=== PATIENT | male | born 1950 | race Hispanic/Latino ===

== ENCOUNTER 2018-01-09 13:12 | Emergency (ER) | payer OTHER ==
[2018-01-09] MEDS ORDERED: TETANUS & DIPHTHERIA TOX,ADULT 0.5 ML VIAL ONE (16:24)
--- NOTE | 2018-01-09 17:03 | RAD REPORT ---
EXAM DESCRIPTION: RAD - Hand Right 3 View - 01/09/2018 4:52 pm CLINICAL HISTORY: First digit infection. COMPARISON: None. FINDINGS: Moderate soft tissue swelling is present involving the first digit. No fracture, dislocati on or evidence of subcutaneous air. Radiocarpal arthritic changes are present. Vascular calcification s are seen. IMPRESSION: Moderate soft tissue swelling of the first digit.
[2018-01-09] MEDS ORDERED: LIDOCAINE 1% 20 ML MDV ONE ×2 (17:29→17:30)
--- NOTE | 2018-01-09 18:28 | EDPHYS ---
Physician Documentation [facility] Name: Selena Melgar Age: 67 yrs Sex: Male : 1950 Arrival Date: 01/09/2018 Time: 13:14 Bed Treatment Private MD: Eze Lieberman E ED Physician Jean Hernadez HPI: 01/09 18:00 This 67 yrs old Male presents to ER via Ambulatory with complaints of Thumb pm1 Injury. 18:00 The patient or guardian reports pain, swelling. The complaints affect the right thumb. pm1 Context: The problem was sustained at home, resulted from puncture wound 2 days ago. Onset: The symptoms/episode began/occurred 2 day(s) ago. Modifying factors: The symptoms are alleviated by nothing, the symptoms are aggravated by nothing. Associated signs and symptoms: Pertinent negatives: numbness distally, tingling distally. Severity of symptoms: in the emergency department the symptoms are actually worse. The patient has not experienced similar symptoms in the past. The patient has not recently seen a physician. patient was changing a curtain kezia and got a splinter to his right thumb 2 days ago. Patient removed the splinter yesterday. patient without fever. Full range of motion present to thumb. Historical: - Allergies: 13:19 No Known Allergies; aj - Home Meds: 13:19 aspirin 81 mg Oral TbEC 1 tab once daily [Active]; atorvastatin 20 mg Oral tab 1 tab aj once daily [Active]; baclofen 10 mg Oral tab 1 tab 3 times per day [Active]; lisinopril 20 mg Oral tab 1 tab once daily [Active]; metformin 500 mg Oral tab 1 tab 2 times per day [Active]; - PMHx: 13:19 CVA; Diabetes - NIDDM; Hyperlipidemia; Hypertension; aj - PSHx: 13:19 Cholecystectomy; aj - Immunization history:: Last tetanus immunization: < 5 years ago. - Social history:: Smoking status: Patient/guardian denies using tobacco. - Ebola Screening: : No symptoms or risks identified at this time. ROS: 18:00 Constitutional: Negative for fever, chills, and weight loss, Eyes: Negative for injury, pm1 pain, redness, and discharge, ENT: Negative for injury, pain, and discharge, Neck: Negative for injury, pain, and swelling, Cardiovascular: Negative for chest pain, palpitations, and edema, Respiratory: Negative for shortness of breath, cough, wheezing, and pleuritic chest pain, Abdomen/GI: Negative for abdominal pain, nausea, vomiting, diarrhea, and constipation, Back: Negative for injury and pain. 18:00 Skin: Negative for injury, rash, and discoloration, Neuro: Negative for headache, weakness, numbness, tingling, and seizure. 18:00 MS/extremity: Positive for pain, swelling, of the right thumb, Negative for decreased range of motion, deformity. Exam: 18:00 Constitutional: This is a well developed, well nourished patient who is awake, alert, pm1 and in no acute distress. Head/Face: Normocephalic, atraumatic. Neck: Trachea midline, no thyromegaly or masses palpated, and no cervical lymphadenopathy. Supple, full range of motion without nuchal rigidity, or vertebral point tenderness. No Meningismus. Chest/axilla: Normal chest wall appearance and motion. Nontender with no deformity. No lesions are appreciated. Cardiovascular: Regular rate and rhythm with a normal S1 and S2. No gallops, murmurs, or rubs. Normal PMI, no JVD. No pulse deficits. Respiratory: Lungs have equal breath sounds bilaterally, clear to auscultation and percussion. No rales, rhonchi or wheezes noted. No increased work of breathing, no retractions or nasal flaring. Back: No spinal tenderness. No costovertebral tenderness. Full range of motion. 18:00 MS/ Extremity: Pulses equal, no cyanosis. Neurovascular intact. Full, normal range of motion. No fusiform swelling, tenderness over tendon sheath, flexed position of finger, or pain with passive flexion of right thumb. Negative kanavel's signs 18:00 Skin: cellulitis, that is minimal, on the dorsal aspect of distal phalanx of right thumb. Vital Signs: 13:19 BP 144 / 79; Pulse 68; Resp 19; Temp 97.6; Pulse Ox 100% on R/A; Weight 68.04 kg; aj Height 5 ft. 4 in. (162.56 cm); 16:44 BP 181 / 77; Pulse 57; Resp 18; Pulse Ox 100% ; sv 13:19 Body Mass Index 25.75 (68.04 kg, 162.56 cm) aj Procedures: 18:00 I \T\ D: Incision and drainage was performed for an abscess of the right Prepped with pm1 Betadine, Anesthetized with 2 ml's 1% Lidocaine. digital block to right thumb. Incised with Drained No purulence or drainage present with incision with scalpel #11 to main area of swelling, lateral aspect of right thumb nail, and lifting cuticle. No abscess present the patient tolerated the procedure well. MDM: 16:13 Patient medically screened. pm1 17:37 Data reviewed: vital signs. Data interpreted: Pulse oximetry: on room air is 100 %. pm1 Interpretation: normal. 18:25 Counseling: I had a detailed discussion with the patient and/or guardian regarding: the pm1 historical points, exam findings, and any diagnostic results supporting the discharge/admit diagnosis, radiology results, the need for outpatient follow up, a hand specialist, to return to the emergency department if symptoms worsen or persist or if there are any questions or concerns that arise at home. 01/09 16:16 Order name: Hand Right 3 View XRAY; Complete Time: 17:17 pm1 Administered Medications: 16:30 Drug: Tetanus-Diphtheria Toxoid Adult 0.5 ml {Blending Machine Operator: LIANAI. Exp: sv 03/20/2020. Lot #: [id number]. } Route: IM; Site: left deltoid; 17:35 Follow up: Response: No adverse reaction sv 17:35 Drug: Lidocaine (1 %) 5 ml {Note: given to Jeremie TROY for procedure.} Volume: 5 ml; sv Route: Infiltration; Disposition: 19:21 Co-signature as Attending Physician, Jean Hernadez MD I agree with the assessment and kdr plan of care. Disposition: 01/09/18 18:27 Discharged to Home. Impression: Puncture wound without foreign body of right hand - splinter to right hand rremoved, Cellulitis of right finger - thumb. - Condition is Stable. - Discharge Instructions: Puncture Wound. - Prescriptions for Bactrim DS 800- 160 mg Oral Tablet - take 1 tablet by ORAL route every 12 hours for 10 days; 20 tablet. Keflex 500 mg Oral Capsule - take 1 capsule by ORAL route every 12 hours for 10 days; 20 capsule. - Medication Reconciliation Form, Thank You Letter, Antibiotic Education form. - Follow up: Theron Seo MD; When: 2 - 3 days; Reason: Recheck today's complaints, Continuance of care, Re-evaluation by your physician. - Problem is new. - Symptoms have improved. Signatures: Dispatcher [employer] EDIsaura Alvarado RN RN sv Myers, Amanda, RN RN aj Rittger, Kevin, MD MD kdr Marinas, Patrick, REHAB SERVICES AIDE REHAB SERVICES AIDE pm1 Corrections: (The following items were deleted from the chart) 18:29 18:27 01/09/2018 18:27 Discharged to Home. Impression: Puncture wound without foreign pm1 body of right hand - splinter to right hand rremoved. Condition is Stable. Forms are Medication Reconciliation Form, Thank You Letter, Antibiotic Education, Prescription Opioid Use. Follow up: Theron Seo; When: 2 - 3 days; Reason: Recheck today's complaints, Continuance of care, Re-evaluation by your physician. Problem is new. Symptoms have improved. pm1 18:53 18:29 01/09/2018 18:27 Discharged to Home. Impression: Puncture wound without foreign sv body of right hand - splinter to right hand rremoved; Cellulitis of right finger - thumb. Condition is Stable. Discharge Instructions: Puncture Wound. Prescriptions for Bactrim DS 800-160 mg Oral Tablet - take 1 tablet by ORAL route every 12 hours for 10 days; 20 tablet, Keflex 500 mg Oral Capsule - take 1 capsule by ORAL route every 12 hours for 10 days; 20 capsule. and Forms are Medication Reconciliation Form, Thank You Letter, Antibiotic Education. Follow up: Theron Seo; When: 2 - 3 days; Reason: Recheck today's complaints, Continuance of care, Re-evaluation by your physician. Problem is new. Symptoms have improved. pm1
--- NOTE | 2018-01-09 18:28 | ER ---
Nurse's Notes [facility] Name: Selena Melgar Age: 67 yrs Sex: Male : 1950 Arrival Date: 01/09/2018 Time: 13:14 Bed Treatment Private MD: Eze Lieberman E Diagnosis: Puncture wound without foreign body of right hand-splinter to right hand rremoved;Cellulitis of right finger-thumb Presentation: 01/09 13:18 Presenting complaint: Patient states: Infection in right thumb for 2 days. Patient aj reports splinter removed yesterday, pain and swelling persists. Transition of care: patient was not received from another setting of care. Onset of symptoms was January 08, 2018. Care prior to arrival: None. 13:18 Method Of Arrival: Ambulatory aj 13:18 Acuity: BALA 4 aj 16:01 Risk Assessment: Do you want to hurt yourself or someone else? Patient reports no sv desire to harm self or others. Initial Sepsis Screen: Does the patient meet any 2 criteria? No. Patient's initial sepsis screen is negative. Does the patient have a suspected source of infection? Yes: Skin breakdown/wound. Triage Assessment: 13:19 General: Appears in no apparent distress. comfortable, Behavior is calm, cooperative, aj appropriate for age. Pain: Complains of pain in dorsal aspect of distal phalanx of right thumb and palmar aspect of distal phalanx of right thumb. Neuro: Level of Consciousness is awake, alert, obeys commands, Oriented to person, place, time, situation, Appropriate for age. Respiratory: Airway is patent Respiratory effort is even, unlabored, Respiratory pattern is regular, symmetrical. Derm: Skin is intact, is healthy with good turgor, Skin is pink, warm \T\ dry. normal. Musculoskeletal: Swelling present in dorsal aspect of distal phalanx of right thumb and palmar aspect of distal phalanx of right thumb. Historical: - Allergies: 13:19 No Known Allergies; aj - Home Meds: 13:19 aspirin 81 mg Oral TbEC 1 tab once daily [Active]; atorvastatin 20 mg Oral tab 1 tab aj once daily [Active]; baclofen 10 mg Oral tab 1 tab 3 times per day [Active]; lisinopril 20 mg Oral tab 1 tab once daily [Active]; metformin 500 mg Oral tab 1 tab 2 times per day [Active]; - PMHx: 13:19 CVA; Diabetes - NIDDM; Hyperlipidemia; Hypertension; aj - PSHx: 13:19 Cholecystectomy; aj - Immunization history:: Last tetanus immunization: < 5 years ago. - Social history:: Smoking status: Patient/guardian denies using tobacco. - Ebola Screening: : No symptoms or risks identified at this time. Screenin:00 Abuse screen: Denies threats or abuse. Denies injuries from another. Nutritional sv screening: No deficits noted. Tuberculosis screening: No symptoms or risk factors identified. Fall Risk None identified. Assessment: 15:56 General: Appears in no apparent distress. uncomfortable, slender, Behavior is calm, sv cooperative, appropriate for age. Pain: Complains of pain in right thumb Pain currently is 7 out of 10 on a pain scale. Quality of pain is described as tender, throbbing, Pain began 2-3 days ago. Is continuous. Neuro: Level of Consciousness is awake, alert, obeys commands, Oriented to person, place, time, situation, Moves all extremities. Full function Gait is steady. Cardiovascular: Patient's skin is warm and dry. Pulses are 3+ in right radial artery and left radial artery. Respiratory: Respiratory effort is even, unlabored, Respiratory pattern is regular, symmetrical. Derm: Skin is normal. Musculoskeletal: Range of motion: intact in all extremities, Swelling present in right thumb Pt reports that he had a splinter lodged in his skin and underneath the nail for about a day then took it out and the swelling started. Pt went to Dr Byrd's office but was then referred here for further evaluation. 16:44 Reassessment: Patient appears in no apparent distress at this time. No changes from sv previously documented assessment. Patient and/or family updated on plan of care and expected duration. Pain level reassessed. Patient is alert, oriented x 3, equal unlabored respirations, skin warm/dry/pink. 18:52 Reassessment: Patient appears in no apparent distress at this time. Patient and/or sv family updated on plan of care and expected duration. Pain level reassessed. Patient is alert, oriented x 3, equal unlabored respirations, skin warm/dry/pink. Patient denies pain at this time. Vital Signs: 13:19 BP 144 / 79; Pulse 68; Resp 19; Temp 97.6; Pulse Ox 100% on R/A; Weight 68.04 kg; aj Height 5 ft. 4 in. (162.56 cm); 16:44 BP 181 / 77; Pulse 57; Resp 18; Pulse Ox 100% ; sv 13:19 Body Mass Index 25.75 (68.04 kg, 162.56 cm) aj ED Course: 13:14 Patient arrived in ED. mr 13:15 Eze Lieberman MD is Private Physician. mr 13:19 Triage completed. aj 13:19 Arm band placed on left wrist. Patient placed in waiting room, Patient notified of wait aj time. 15:56 Isaura David, VINCENT is Primary Nurse. sv 16:00 Patient has correct armband on for positive identification. Adult w/ patient. Door sv closed. 16:12 Jeremie Coles NP is PHCP. pm1 16:13 Jean Hernadez MD is Attending Physician. pm1 16:32 X-ray(s) taken. sv 16:44 X-ray completed. Portable x-ray completed in exam room. Patient tolerated procedure bb2 well. 16:49 Hand Right 3 View XRAY In Process Unspecified. EDMS 18:26 Theron Seo MD is Referral Physician. pm1 18:30 Assist provider with I \T\ D: of an abscess on right thumb Set up I\T\D tray. Performed by berny Coles SEISMOGRAPH CHIEF Dressing with Neosporin and bandaid. 18:52 Patient did not have IV access during this emergency room visit. sv Administered Medications: 16:30 Drug: Tetanus-Diphtheria Toxoid Adult 0.5 ml {Gold Reclaimer: GoNabit. Exp: sv 03/20/2020. Lot #: [id number]. } Route: IM; Site: left deltoid; 17:35 Follow up: Response: No adverse reaction sv 17:35 Drug: Lidocaine (1 %) 5 ml {Note: given to Jeremie TROY for procedure.} Volume: 5 ml; sv Route: Infiltration; Outcome: 18:27 Discharge ordered by . pm1 18:52 Discharged to home ambulatory, with family. sv 18:52 Condition: stable 18:52 Discharge instructions given to patient, family, Instructed on discharge instructions, follow up and referral plans. medication usage, wound care, Demonstrated understanding of instructions, follow-up care, medications, wound care, Prescriptions given X 2. 18:53 Patient left the ED. sv Signatures: Dispatcher [employer] EDIsaura Alvarado RN RN sv Myers, Amanda, RN RN aj Rivera, Maria mr Marinas, Patrick, SEISMOGRAPH CHIEF SEISMOGRAPH CHIEF pm1 Tiera, Lexii bb2
[2018-01-09 19:10] VITALS: TEMP 97.6; O2SAT 100
[2018-01-09 19:11] VITALS: BP 181/77
== END 2018-01-09 18:53 | disposition home or self-care (01) ==
LOC: ER 13:12
PROC: 0HCFXZZ Extirpation of Matter from Right Hand Skin, External Approach (ICD-10-PCS; principal; 2018-01-09)
DX: S61.431A Puncture wound without foreign body of right hand, initial encounter (principal); L03.011 Cellulitis of right finger; W45.8XXA Other foreign body or object entering through skin, initial encounter; Y93.9 Activity, unspecified; Y92.9 Unspecified place or not applicable
CPT/HCPCS: 90714; 99284

== ENCOUNTER 2018-11-22 07:57 | Emergency (ER) | payer OTHER ==
--- OUTSIDE RECORDS SUMMARY | 2018-11-22 07:59 | XMS REPORT ---
:1950 [facility] Organization [facility] Address [address] [place] [address] [address] [place] [address] Care Team Providers Name Role Phone Unavailable Unavailable Unavailable Problems This patient has no known problems. Allergies, Adverse Reactions, Alerts This patient has no known allergies or adverse reactions. Medications This patient has no known medications.
[2018-11-22 08:47] LABS: Absolute Monocytes 1.1 K/uL (0.1-1.3); Absolute Neutrophil 13.6 K/uL (1.8-8.0); Basophils % 0.4 % (0-1.3); Eosinophils % 0.6 % (0-4.4); Hematocrit 37.7 % (39.6-49.0); Lymphocytes % 6.1 % (15.3-44.8); MPV 8.5 fL (7.6-11.3); Monocytes % 6.7 % (3.3-12.3)
[2018-11-22] MEDS ORDERED: IPRATROPIUM BROM 0.5MG/2.5ML ONE (08:54)
[2018-11-22] MEDS ORDERED: LEVALBUTEROL 1.25 MG/3 ML NEB ONE (08:54)
[2018-11-22] MEDS ORDERED: NA CHLORIDE 0.9% 1,000 ML ONE (08:55)
[2018-11-22] MEDS ORDERED: ACETAMINOPHEN 325 MG TABLET ONE (08:55)
[2018-11-22] MEDS ORDERED: CEFTRIAXONE/SWI 1gm 2 GM/20 ML SYR ONE (08:55)
[2018-11-22] MEDS ORDERED: AZITHROMYCIN IV 500 MG in NA CHLORIDE 0.9% 250 ML IVPB ONE (09:00)
[2018-11-22 09:06] LABS: ALT/SGPT 22 U/L (12-78); AST/SGOT 23 U/L (15-37); Albumin 4.2 g/dL (3.4-5.0); Alkaline Phosphatase 110 U/L (45-117); BUN Blood Urea Nitrogen 14 mg/dL (7-18); Bicarbonate 25 mmol/L (21-32); Bilirubin Direct 0.2 mg/dL (0-0.2); Bilirubin Total 0.6 mg/dL (0.2-1.0); CKMB Creatine Kinase MB 1.4 ng/mL (0.3-3.6); Creatine Phosphokinase 562 U/L (39-308); Glucose Level 182 mg/dL (74-106); Lipase 95 U/L (73-393); Protein, Total 8.1 g/dL (6.4-8.2); Sodium Level 139 mmol/L (136-145); Troponin (Emerg Dept Use Only) < 0.02 ng/mL (0.0-0.045)
[2018-11-22 09:19] LABS: Protime INR 1.08
[2018-11-22 09:46] LABS: Blood Morphology Comment NOTED (NOT SEEN); Burr Cells 1+; Platelet Estimate ADEQ
--- NOTE | 2018-11-22 09:46 | RAD REPORT ---
EXAM DESCRIPTION: RAD - Chest Single View - 11/22/2018 8:42 am CLINICAL HISTORY: Cough COMPARISON: February 2017 TECHNIQUE: AP portable chest image was obtained 0835 hour . FINDINGS: Lung volumes are low. No acute lung parenchymal process. Lung markings are similar to comp arison. Heart and vasculature are normal. No measurable pleural effusion and no pneumothorax. No acut e bony abnormality seen. No acute aortic findings suspected. IMPRESSION: No acute cardiopulmonary process. No suspicious interval change.
--- NOTE | 2018-11-22 10:13 | RAD REPORT ---
EXAM DESCRIPTION: CT - Chest For Pe Angio - 11/22/2018 10:05 am CLINICAL HISTORY: Cough, fever, dyspnea COMPARISON: Portable chest same day TECHNIQUE: Dynamically enhanced 3 mm thick images of the chest were obtained during administration o f approximately 150mL Isovue 370 IV contrast. Coronal and oblique MIP reconstruction images were gene rated and reviewed. Exam utilizes a protocol to evaluate the pulmonary arterial tree. All CT scans are performed using dose optimization technique as appropriate and may include automated exposure control or mA/KV adjustment according to patient size. FINDINGS: No pulmonary emboli are identified. The aorta as imaged shows no acute or suspicious finding. No pericardial thickening or effusion. Hear t size is upper normal. There is motion degradation present. Left ventricular wall thickness appears increased. Assessment is limited given the amount of motion. Minimal patchy alveolar opacities are present in the posterior gutter on the left. This would be obsc ured or occult on a portable chest film. No pleural effusion or pleural thickening. No mediastinal or hilar suspicious masses. No chest wall masses or abnormal axillary lymphadenopathy. IMPRESSION: No pulmonary emboli identified. Minimal patchy alveolar opacities in the posterior gutter on the left. Minimal left base pneumonia wo uld be suspected and can be correlated with clinical presentation. Motion degradation limits heart assessment. 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
[2018-11-22] MEDS ORDERED: HYDROCODONE/CHLORPHEN 5 ML/OSYR ONE (10:29)
--- NOTE | 2018-11-22 10:30 | EDPHYS ---
Physician Documentation [facility] Name: Selena Melgar Age: 68 yrs Sex: Male : 1950 Arrival Date: 11/22/2018 Time: 08:00 Bed 13 Private MD: ED Physician Jeb Kuhn HPI: 11/22 08:31 This 68 yrs old Male presents to ER via Ambulatory with complaints of Cough. brea 08:31 The patient or guardian reports airway noise, cough, difficulty breathing. Onset: The brea symptoms/episode began/occurred 3 day(s) ago. Severity of symptoms: At their worst the symptoms were mild, in the emergency department the symptoms are unchanged. Modifying factors: The symptoms are alleviated by nothing. Associated signs and symptoms: Pertinent positives: fever. The patient has experienced similar episodes in the past, a few times. Historical: - Allergies: 08:13 No Known Allergies; hb - Home Meds: 08:13 aspirin 81 mg Oral TbEC 1 tab once daily [Active]; atorvastatin 20 mg Oral tab 1 tab hb once daily [Active]; baclofen 10 mg Oral tab 1 tab 3 times per day [Active]; lisinopril 20 mg Oral tab 1 tab once daily [Active]; metformin 500 mg Oral tab 1 tab 2 times per day [Active]; - PMHx: 08:13 CVA; Diabetes - NIDDM; Hyperlipidemia; Hypertension; hb - PSHx: 08:13 Cholecystectomy; hb - Immunization history:: Adult Immunizations up to date. - Social history:: Smoking status: Patient/guardian denies using tobacco. - Ebola Screening: : No symptoms or risks identified at this time. ROS: 08:35 Constitutional: Negative for fever, chills, and weight loss, Eyes: Negative for injury, brea pain, redness, and discharge, Neck: Negative for injury, pain, and swelling, Cardiovascular: Negative for chest pain, palpitations, and edema, Abdomen/GI: Negative for abdominal pain, nausea, vomiting, diarrhea, and constipation, Back: Negative for injury and pain, : Negative for injury, bleeding, discharge, and swelling, MS/Extremity: Negative for injury and deformity, Skin: Negative for injury, rash, and discoloration, Neuro: Negative for headache, weakness, numbness, tingling, and seizure, Psych: Negative for depression, anxiety, suicide ideation, homicidal ideation, and hallucinations, Allergy/Immunology: Negative for hives, rash, and allergies, Endocrine: Negative for neck swelling, polydipsia, polyuria, polyphagia, and marked weight changes, Hematologic/Lymphatic: Negative for swollen nodes, abnormal bleeding, and unusual bruising. 08:35 ENT: Positive for hoarseness, rhinorrhea. 08:35 Respiratory: Positive for cough, shortness of breath, at rest. Exam: 08:35 Constitutional: This is a well developed, well nourished patient who is awake, alert, brea and in no acute distress. Head/Face: Normocephalic, atraumatic. Eyes: Pupils equal round and reactive to light, extra-ocular motions intact. Lids and lashes normal. Conjunctiva and sclera are non-icteric and not injected. Cornea within normal limits. Periorbital areas with no swelling, redness, or edema. ENT: Nares patent. No nasal discharge, no septal abnormalities noted. Tympanic membranes are normal and external auditory canals are clear. Oropharynx with no redness, swelling, or masses, exudates, or evidence of obstruction, uvula midline. Mucous membranes moist. Neck: Trachea midline, no thyromegaly or masses palpated, and no cervical lymphadenopathy. Supple, full range of motion without nuchal rigidity, or vertebral point tenderness. No Meningismus. Chest/axilla: Normal chest wall appearance and motion. Nontender with no deformity. No lesions are appreciated. Abdomen/GI: Soft, non-tender, with normal bowel sounds. No distension or tympany. No guarding or rebound. No evidence of tenderness throughout. Back: No spinal tenderness. No costovertebral tenderness. Full range of motion. Male : Normal genitalia with no discharge or lesions. Skin: Warm, dry with normal turgor. Normal color with no rashes, no lesions, and no evidence of cellulitis. MS/ Extremity: Pulses equal, no cyanosis. Neurovascular intact. Full, normal range of motion. Neuro: Awake and alert, GCS 15, oriented to person, place, time, and situation. Cranial nerves II-XII grossly intact. Motor strength 5/5 in all extremities. Sensory grossly intact. Cerebellar exam normal. Normal gait. Psych: Awake, alert, with orientation to person, place and time. Behavior, mood, and affect are within normal limits. 08:35 Cardiovascular: Rate: tachycardic, Rhythm: regular, Pulses: Pulses are 4+ in bilateral radial, brachial, femoral, popliteal, posterior tibial and and dorsalis pedis arteries.. Heart sounds: normal, Edema: is not appreciated, JVD: is not appreciated. Vital Signs: 08:11 BP 156 / 88; Pulse 118; Resp 20; Temp 100.3; Pulse Ox 90% on R/A; Pain 4/10; hb 08:27 Weight 68.04 kg (R); em 09:05 BP 150 / 83; Pulse 119; Resp 18; Pulse Ox 100% on Nebulizer Mask; em 10:20 BP 113 / 75; Pulse 102; Resp 16; Pulse Ox 96% on R/A; em 11:32 BP 143 / 82; Pulse 94; Resp 18; Pulse Ox 99% on R/A; em MDM: 08:10 Patient medically screened. [facility] [place] 08:41 Data reviewed: vital signs, nurses notes, lab test result(s), EKG, radiologic studies, brea plain films. 11/22 08:24 Order name: Basic Metabolic Panel; Complete Time: 09:23 em 11/22 08:24 Order name: Blood Culture Adult (2) em 11/22 08:24 Order name: CBC with Diff; Complete Time: 10:25 em 11/22 08:24 Order name: Ckmb; Complete Time: 09:23 em 11/22 08:24 Order name: CPK; Complete Time: 09:23 em 11/22 08:24 Order name: Lactate; Complete Time: 09:23 em 11/22 08:24 Order name: LFT's; Complete Time: 09:23 em 11/22 08:24 Order name: Lipase; Complete Time: 09:23 em 11/22 08:24 Order name: Procalcitonin; Complete Time: 10:25 em 11/22 08:24 Order name: Protime (+inr); Complete Time: 09:23 em 11/22 08:24 Order name: Ptt, Activated; Complete Time: 09:23 em 11/22 08:24 Order name: Troponin (emerg Dept Use Only); Complete Time: 09:23 em 11/22 08:27 Order name: Flu; Complete Time: 09:23 [facility] [place] 11/22 08:24 Order name: Chest Single View XRAY; Complete Time: 10:25 em 11/22 08:24 Order name: Accucheck; Complete Time: 08:39 em 11/22 08:24 Order name: Cardiac monitoring; Complete Time: 08:39 em 11/22 08:24 Order name: EKG - Nurse/Tech; Complete Time: 08:39 em 11/22 08:24 Order name: IV Saline Lock - Large Bore; Complete Time: 08:39 em 11/22 08:24 Order name: Labs collected and sent; Complete Time: 08:39 em 11/22 08:49 Order name: Manual Differential; Complete Time: 10:25 EDMS 11/22 09:25 Order name: CT Chest For PE Angio; Complete Time: 10:25 brea 11/22 10:30 Order name: INCENTIVE SPIROMETRY brea 11/22 08:24 Order name: O2 Per Protocol; Complete Time: 08:39 em 11/22 08:24 Order name: O2 Sat Monitoring; Complete Time: 08:39 em Administered Medications: 08:45 Drug: Tylenol 650 mg Route: PO; em 11:30 Follow up: Response: No adverse reaction em 08:50 Drug: Xopenex 2.5 mg Route: Inhalation; em 09:30 Follow up: Response: No adverse reaction; Marked relief of symptoms em 08:50 Drug: AtroVENT Aerosol 0.5 mg Route: Inhalation; em 09:30 Follow up: Response: No adverse reaction; Marked relief of symptoms em 08:55 Drug: NS 0.9% (30 ml/kg) 30 ml/kg Route: IV; Rate: bolus; Site: right forearm; em 08:56 Drug: Rocephin 2 grams Route: IV; Rate: per protocol; Site: right forearm; la1 09:30 Follow up: Response: No adverse reaction; IV Status: Completed infusion; IV Intake: 20mlem 09:22 Drug: Zithromax 500 mg Route: IVPB; Infused Over: 1 hrs; Site: right forearm; em 11:30 Follow up: Response: No adverse reaction; IV Status: Completed infusion; IV Intake: em 250ml Disposition: 11/22/18 10:29 Discharged to Home. Impression: Cough, Pneumonia due to other specified bacteria - left base , Type 2 diabetes mellitus, Fever, unspecified, Hypoxemia, Elevated white blood cell count. - Condition is Stable. - Discharge Instructions: Type 2 Diabetes Mellitus, Diagnosis, Adult, Community-Acquired Pneumonia, Adult, Community-Acquired Pneumonia, Adult, [id number], Hypoxemia, Cough, Adult, Type 2 Diabetes Mellitus, Diagnosis, Adult, [id number], Fever, Adult, [id number]. - Prescriptions for Albuterol Sulfate 90 mcg/actuation - inhale 1-2 puff by INHALATION route every 4-6 hours; 1 Inhaler. Zithromax 500 mg Oral Tablet - take 1 tablet by ORAL route once daily for 5 days; 5 tablet. Cheratussin AC 10- 100 mg/5 mL Oral liquid - take 10 milliliter by ORAL route every 4 hours; 150 milliliter. - Medication Reconciliation Form, Thank You Letter, Antibiotic Education, Prescription Opioid Use form. - Follow up: Private Physician; When: 2 - 3 days; Reason: Recheck today's complaints, Continuance of care, Re-evaluation by your physician. Follow up: Brian Bryan MD; When: 2 - 3 days; Reason: Recheck today's complaints, Continuance of care, Re-evaluation by your physician. - Problem is new. - Symptoms have improved. Signatures: Dispatcher [employer] [facility] Jeb Kuhn MD MD cha Munoz, Edgar, METAL MOCKUP MAKER METAL MOCKUP MAKER em Mehran Sidhu RN RN laRajani Bazan, RN RN Corrections: (The following items were deleted from the chart) 09:39 09:24 Thorax Wo Con+CT.RAD.BRZ ordered. [facility] 10:31 10:29 11/22/2018 10:29 Discharged to Home. Impression: Cough; Pneumonia due to other brea specified bacteria - left base . Condition is Stable. Forms are Medication Reconciliation Form, Thank You Letter, Antibiotic Education, Prescription Opioid Use. Follow up: Private Physician; When: 2 - 3 days; Reason: Recheck today's complaints, Continuance of care, Re-evaluation by your physician. Follow up: Brian Bryan; When: 2 - 3 days; Reason: Recheck today's complaints, Continuance of care, Re-evaluation by your physician. Problem is new. Symptoms have improved. brea 11:35 10:31 11/22/2018 10:29 Discharged to Home. Impression: Cough; Pneumonia due to other em specified bacteria - left base ; Type 2 diabetes mellitus; Fever, unspecified; Hypoxemia; Elevated white blood cell count. Condition is Stable. Discharge Instructions: Community-Acquired Pneumonia, Adult, Community-Acquired Pneumonia, Adult, [id number], Cough, Adult. Prescriptions for Albuterol Sulfate 90 mcg/actuation - inhale 1-2 puff by INHALATION route every 4-6 hours; 1 Inhaler, Zithromax 500 mg Oral Tablet - take 1 tablet by ORAL route once daily for 5 days; 5 tablet. and Forms are Medication Reconciliation Form, Thank You Letter, Antibiotic Education, Prescription Opioid Use. Follow up: Private Physician; When: 2 - 3 days; Reason: Recheck today's complaints, Continuance of care, Re-evaluation by your physician. Follow up: Brian Bryan; When: 2 - 3 days; Reason: Recheck today's complaints, Continuance of care, Re-evaluation by your physician. Problem is new. Symptoms have improved. brea
--- NOTE | 2018-11-22 10:30 | ER ---
Nurse's Notes [facility] Name: Selena Melgar Age: 68 yrs Sex: Male : 1950 Arrival Date: 11/22/2018 Time: 08:00 Bed 13 Private MD: Diagnosis: Cough;Pneumonia due to other specified bacteria-left base ;Type 2 diabetes mellitus;Fever, unspecified;Hypoxemia;Elevated white blood cell count Presentation: 11/22 08:11 Presenting complaint: Patient states: Nonproductive cough, pain with cough, headache, hb and sore throat x 3 days. Transition of care: patient was not received from another setting of care. Onset of symptoms was November 19, 2018. Risk Assessment: Do you want to hurt yourself or someone else? Patient reports no desire to harm self or others. Care prior to arrival: None. 08:11 Method Of Arrival: Ambulatory hb 08:11 Acuity: BALA 2 hb 08:20 Initial Sepsis Screen: Does the patient meet any 2 criteria? HR > 90 bpm. No. Patient's em initial sepsis screen is negative. Does the patient have a suspected source of infection? Yes: Productive cough/pneumonia. Historical: - Allergies: 08:13 No Known Allergies; hb - Home Meds: 08:13 aspirin 81 mg Oral TbEC 1 tab once daily [Active]; atorvastatin 20 mg Oral tab 1 tab hb once daily [Active]; baclofen 10 mg Oral tab 1 tab 3 times per day [Active]; lisinopril 20 mg Oral tab 1 tab once daily [Active]; metformin 500 mg Oral tab 1 tab 2 times per day [Active]; - PMHx: 08:13 CVA; Diabetes - NIDDM; Hyperlipidemia; Hypertension; hb - PSHx: 08:13 Cholecystectomy; hb - Immunization history:: Adult Immunizations up to date. - Social history:: Smoking status: Patient/guardian denies using tobacco. - Ebola Screening: : No symptoms or risks identified at this time. Screenin:13 Abuse screen: Denies threats or abuse. Denies injuries from another. Nutritional hb screening: No deficits noted. Tuberculosis screening: No symptoms or risk factors identified. Fall Risk None identified. Assessment: 08:35 General: Appears in no apparent distress. comfortable, Behavior is calm, cooperative, em Denies fever. Pain: Complains of pain in chest Pain currently is 4 out of 10 on a pain scale. Pain began 2-3 days ago. Neuro: Level of Consciousness is awake, alert, obeys commands, Oriented to person, place, time, situation. Cardiovascular: Capillary refill < 3 seconds Patient's skin is warm and dry. Respiratory: Reports cough that is productive, pain with cough since 3 days ago Airway is patent Respiratory effort is even, unlabored, Respiratory pattern is regular, symmetrical, Breath sounds are diminished bilaterally. GI: Abdomen is flat. : No signs and/or symptoms were reported regarding the genitourinary system. EENT: Denies nasal congestion, difficulty swallowing. Derm: Skin is intact, is healthy with good turgor, Skin is pink, warm \T\ dry. Musculoskeletal: Capillary refill < 3 seconds, Range of motion: intact in all extremities. 08:45 Reassessment: I agree with previous assessment. hb 09:10 Reassessment: Patient appears in no apparent distress at this time. Patient and/or em family updated on plan of care and expected duration. Pain level reassessed. Patient is alert, oriented x 3, equal unlabored respirations, skin warm/dry/pink. 10:30 Reassessment: Patient appears in no apparent distress at this time. Patient and/or em family updated on plan of care and expected duration. Pain level reassessed. Patient is alert, oriented x 3, equal unlabored respirations, skin warm/dry/pink. Patient states feeling better. Patient states symptoms have improved. 11:34 Reassessment: Patient appears in no apparent distress at this time. Patient and/or em family updated on plan of care and expected duration. Pain level reassessed. Patient is alert, oriented x 3, equal unlabored respirations, skin warm/dry/pink. Vital Signs: 08:11 BP 156 / 88; Pulse 118; Resp 20; Temp 100.3; Pulse Ox 90% on R/A; Pain 4/10; hb 08:27 Weight 68.04 kg (R); em 09:05 BP 150 / 83; Pulse 119; Resp 18; Pulse Ox 100% on Nebulizer Mask; em 10:20 BP 113 / 75; Pulse 102; Resp 16; Pulse Ox 96% on R/A; em 11:32 BP 143 / 82; Pulse 94; Resp 18; Pulse Ox 99% on R/A; em ED Course: 08:00 Patient arrived in ED. as 08:09 Jeb Kuhn MD is Attending Physician. brea 08:12 Triage completed. hb 08:12 Arm band placed on. hb 08:15 Keny Wilburn LVN is Primary Nurse. em 08:35 Patient has correct armband on for positive identification. Placed in gown. Bed in low em position. Call light in reach. Side rails up X2. Adult w/ patient. pvc monitor on. Pulse ox on. NIBP on. 08:35 Initial lab(s) drawn, by me, sent to lab. Flu and/or RSV swab sent to lab. Inserted em saline lock: 20 gauge in right forearm, using aseptic technique. Blood collected. 08:43 Chest Single View XRAY In Process Unspecified. EDMS 08:45 EKG done, by ED staff, reviewed by Jeb Kuhn MD. em1 08:50 Initial Neb Treatment Given as ordered. em 10:05 CT Chest For PE Angio In Process Unspecified. EDMS 10:05 CT completed. Patient tolerated procedure well. Patient moved back from CT. mw3 10:28 Brian Bryan MD is Referral Physician. brea 11:34 No provider procedures requiring assistance completed. IV discontinued, intact, em bleeding controlled, No redness/swelling at site. Pressure dressing applied. Administered Medications: 08:45 Drug: Tylenol 650 mg Route: PO; em 11:30 Follow up: Response: No adverse reaction em 08:50 Drug: Xopenex 2.5 mg Route: Inhalation; em 09:30 Follow up: Response: No adverse reaction; Marked relief of symptoms em 08:50 Drug: AtroVENT Aerosol 0.5 mg Route: Inhalation; em 09:30 Follow up: Response: No adverse reaction; Marked relief of symptoms em 08:55 Drug: NS 0.9% (30 ml/kg) 30 ml/kg Route: IV; Rate: bolus; Site: right forearm; em 08:56 Drug: Rocephin 2 grams Route: IV; Rate: per protocol; Site: right forearm; la1 09:30 Follow up: Response: No adverse reaction; IV Status: Completed infusion; IV Intake: 20mlem 09:22 Drug: Zithromax 500 mg Route: IVPB; Infused Over: 1 hrs; Site: right forearm; em 11:30 Follow up: Response: No adverse reaction; IV Status: Completed infusion; IV Intake: em 250ml Intake: 09:30 IV: 20ml; Total: 20ml. em 11:30 IV: 250ml; Total: 270ml. em Outcome: 10:29 Discharge ordered by . [facility] 11:34 Discharged to home via wheelchair, with family. em 11:34 Condition: good 11:34 Discharge instructions given to patient, family, Instructed on discharge instructions, follow up and referral plans. medication usage, Demonstrated understanding of instructions, follow-up care, medications, Prescriptions given X 3. 11:35 Patient left the ED. em Signatures: Dispatcher [employer] EDJbe Quarles MD MD cha Munoz, Edgar, ENGAGEMENT DIRECTOR ENGAGEMENT DIRECTOR Simona Kamara Eric em1 Mehran Sidhu RN RN la1 Rajani Gallardo RN RN Yolie Gardner 3
[2018-11-22 11:42] VITALS: TEMP 100.3
[2018-11-22 11:45] VITALS: BP 143/82; O2SAT 99
--- NOTE | 2018-11-25 11:33 | EKG ---
Test Date: 2018-11-22 Test Time: 08:41:05 Residential Aide: CITLALLI MEASUREMENT RESULTS: Intervals: Rate: 114 [place]: 200 QRSD: 76 QT: 312 QTc: 430 [place]: P: 64 [place]: 200 QRS: -41 T: 49 INTERPRETIVE STATEMENTS: Sinus tachycardia Left axis deviation Pulmonary disease pattern Abnormal ECG Compared to ECG 01/22/2009 14:16:10 Left-axis deviation now present Sinus rhythm no longer present Electronically Signed On 11-23-18 10:51:44 CDT by Robe Kaba
== END 2018-11-22 11:35 | disposition home or self-care (01) ==
LOC: ER 07:57
DX: J15.8 Pneumonia due to other specified bacteria (principal); R09.02 Hypoxemia; R50.9 Fever, unspecified; D72.829 Elevated white blood cell count, unspecified; E11.9 Type 2 diabetes mellitus without complications; I10 Essential (primary) hypertension; E78.5 Hyperlipidemia, unspecified; Z79.82 Long term (current) use of aspirin
CPT/HCPCS: 96365; 96368; 93005; 87040 ×2; 85025; 80048; 36415; 82550; 85610; 80076; 83605; 85730; 84484; 82553; 83690; 84145; 87804 ×2; 71275; 71045; 96375; 99285; 96366; Q9967; J0456; J0696; J7030

== ENCOUNTER 2024-12-22 13:35 | Emergency (ER) | payer OTHER ==
--- OUTSIDE RECORDS SUMMARY | 2024-12-22 13:43 | XMS REPORT | Continuity of Care Document ---
Author Name Unknown Address [address] [place] [address] [facility] Address [address] [place] [address] Care Team Providers Care Three Dimensional Map Modeler Name Role Phone JULISSA GILES Primary Care Physician Unavailab BRENDA Steen Attending Clinician Unavailable GINETTE ARREDONDO Attending Clinician UnavaJULISSA Mo Attending Clinician Unavailable JULISSA GILES Attending Clinician Unavailable Julissa Giles MD Attending Clinician [phone] Lab, Billy Frank Attending Clinician Unavailable Cbc, Medicare Wellness [facility] Attending Clinici an Unavailable Doctor Unassigned, Iyanbito Attending Clinician U Sheila Sauceda MD Attending Clinician [phone] Lab, Billy Frank Attending Clinician Unavailable Doctor Unassigned, Iyanbito Attending Clinician U Nadia Bartlett Attending Clinician [phone] NADIA SHAH Attending Clinician Unavailable Abby Fernandez MD Attending Clinician [phone] Lewis KAUR, Guadalupe Attending Clinician Unavailabl SHEILA Chacon Attending Clinician Unava orkrystal Nurse, [facility] Attending Clinician Unavailable MARIN JUNIOR Attending Clinician Unavailab MARIN Bentley Attending Clinician Unavailab le DIAZ, HENRI A Attending Clinician Unavailable 2, Ad[facility] Lab Attending Clinician Unavailable Porfirio Attending Clinician Unavailable Martha Goss Attending Clinician [phone] DASIA MCGHEE Attending Clinician UnavailMARTHA Martinez Attending Clinician UnavailCHIO Chang Attending Clinician Unavailable ABBY FERNANDEZ Attending Clinician Unavailable TANVIR CAMPBELL Attending Clinician UnavailAMENA Khan Attending Clinician Unavailkarely Millan MD, Chio Attending Clinician [phone] , [facility] Echo Room 1 - Attending Clinician Jermaine Simmons RN, Guadalupe Attending Clinician [phone] JORGE HEART Attending Clinician Unavailable Christiano Aguilar MD Attending Clinician [phone] Jorge Heart MD Attending Clinician [phone] Talya Stout DO Attending Clinician [phone] Yana Vázquez RN Attending Clinician UnavailCHRISTIANO Irwin Attending Clinician Unavailable Drea PEDRAZA, Ginny Tavarez Attending Clinician [phone] Elisa Vazquez LMSW Attending Clinician + [phone] BRENDA PIERSON Admitting Clinician Unavailable GINETTE ARREDONDO Admitting Clinician Jermaine Monroy Admitting Clinician Unavailable JORGE HEART Admitting Clinician Unavailable Jorge Heart MD Admitting Clinician [phone] CHRISTIANO AGUILAR Admitting Clinician Unavailable Payers Payer Name Policy Type Policy Number Effective Date Expirati on Date Source [place] [id number] 2018 00:00:00 [facility] DUAL COMP HMO D SNP [id number] 2020 00:00:00 [facility] SELECT OON [id number] 1 00:00:00 [facility] GE - HMO) [id number] 2020 00:00:00 [facility] - DUAL (MEDICARE REPLACEMENT HMO) [id number] [facility] - MEDICARE COMPLETE (MEDICARE REPLACEMENT HMO) [id number] Problems Condition Name Condition Details Condition Category Status Onset Date Resolution Date Last Treatment Date Treating Clinician Comments Source Upper respirator y tract infection, unspecifie d type Upper respirator y tract infection, unspecifie d type Disease Active 5-10 00:00: 00 [facility] Vision changes Vision changes Disease Active 12-31 00:00: 00 [facility] TERRA (obstructi ve sleep apnea) TERRA (obstructi ve sleep apnea) Disease Active 12-31 00:00: 00 [facility] Vitamin B12 deficiency Vitamin B12 deficiency Disease Active 12-31 00:00: 00 [facility] Benign prostatic hyperplasi a with incomplete bladder emptying Benign prostatic hyperplasi a with incomplete bladder emptying Disease Active 3- 00:00: 00 Overview: Formattin g of this note might be different from the original. 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 , unspecifie d hemiplegia type Disease Active 2019-08 00:00: 00 [facility] Spasticity as late effect of cerebrovas cular accident (CVA) Spasticity as late effect of cerebrovas cular accident (CVA) Disease Active 2019-08 00:00: 00 [facility] Neuropathy Neuropathy Disease Active 2019-08 00:00: 00 [facility] History of stroke History of stroke Disease Active 2019-08 00:00: 00 [facility] Balance problem Balance problem Disease Active 2019-08 00:00: 00 [facility] Weakness Weakness Disease Active 2019-08 00:00: 00 [facility] Diabetic polyneurop athy associated with type 2 diabetes mellitus Diabetic polyneurop athy associated with type 2 diabetes mellitus Disease Active 2019-08 00:00: 00 [facility] Essential hypertensi on Essential hypertensi on Disease Active 6-07 00:00: 00 [facility] Type 2 diabetes mellitus without complicati on, without long-term current use of insulin Type 2 diabetes mellitus without complicati on, without long-term current use of insulin Disease Active 2018- 4-16 00:00: 00 [facility] Uncontroll ed hypertensi on Uncontroll ed hypertensi on Disease Resolve d 6-17 00:00: 00 2021-02-25 00:00:00 2021-02-25 18:49:17 [facility] Hypertensi ve emergency Hypertensi ve emergency Disease Resolve d 6-16 00:00: 00 2021-02-25 00:00:00 2021-02-25 18:49:16 [facility] Atypical chest pain Atypical chest pain Disease Resolve d 6-06 00:00: 00 2021-02-25 00:00:00 2021-02-25 18:49:22 [facility] Cerebrovas cular accident (CVA), unspecifie d mechanism Cerebrovas cular accident (CVA), unspecifie d mechanism Disease Resolve d 4-16 00:00: 00 2020-07-03 00:00:00 2020-07-03 16:30:03 [facility] Need for speech therapy assessment Need for speech therapy assessment Disease Resolve d 9-05 00:00: 00 2019-10-01 00:00:00 2019-10-01 22:33:07 [facility] Need for pneumococc al vaccinatio n Need for pneumococc al vaccinatio n Disease Resolve d 9-05 00:00: 00 2019-10-01 00:00:00 2019-10-01 22:33:01 [facility] Allergies, Adverse Reactions, Alerts Allergy Name Allergy Type Status Severity Reaction(s) Onset Date Inactive Date Treating Clinician Comments Source Lisinopr il Propensi ty to adverse reaction s Active Cough 02-02 00:00: 00 [facility] LISINOPR IL DRUG INGREDI Active COUGH 02-02 00:00: 00 [facility] Social History Social Habit Start Date Stop Date Quantity Comments Source [facility] Tobacco use and exposure 2024-04-06 00:00:00 2024-04-06 00:00:00 Smokeless tobacco non-user [facility] History of Social function 2024-04-06 00:00:00 2024-04-06 00:00:00 [facility] Alcoholic beverage intake 2024-04-06 00:00:00 2024-04-06 00:00:00 Current non-drinker of alcohol (finding) [facility] Alcohol intake 2023-04-04 00:00:00 2023-04-04 00:00:00 Current non-drinker of alcohol (finding) [facility] Exposure to SARS-CoV-2 (event) 2022-12-16 00:00:00 2022-12-26 14:33:00 Not sure [facility] Tobacco Comment 2022-06-12 00:00:00 2022-06-12 00:00:00 occasionally, social smoker. [facility] Cigarette pack-years 2022-06-12 00:00:00 2022-06-12 00:00:00 [facility] History SDOH Financial 2020-01-23 00:00:00 2020-01-23 00:00:00 3 [facility] History SDOH Food Worry 2020-01-23 00:00:00 2020-01-23 00:00:00 1 [facility] History SDOH Food Scarcity 2020-01-23 00:00:00 2020-01-23 00:00:00 1 [facility] History SDOH Transport Med 2020-01-23 00:00:00 2020-01-23 00:00:00 2 [facility] History SDOH Transport Non-Med 2020-01-23 00:00:00 2020-01-23 00:00:00 2 [facility] Education 2020-01-23 00:00:00 2020-01-23 00:00:00 3 [facility] History of tobacco use 1969-02-16 00:00:00 Cigarette Smoker [facility] Sex assigned at 1950 00:00:00 1950 00:00:00 [facility] Smoking Status Start Date Stop Date Source Never Smoker [facility] Ex-smoker 2024-04-06 00:00:00 2024-04-06 00:00:00 [facility] Medications Ordered Medication Name Filled Medication Name Start Date Stop Date Current Medication? Ordering Clinician Indication Dosage Frequency Signature (SIG) Comments Components Source metFORMIN 500 mg tablet 2023-08 2 00:00: 00 Yes [id number] 500mg Take 1 tablet by mouth in the morning and 1 tablet in the evening. Take with meals. [facility] levETIRAcet am 500 mg tablet 04-06 09:36: 27 Yes 250mg Take 0.5 tablets by mouth in the morning and 0.5 tablets in the evening. [facility] amLODIPine 10 mg tablet 04-06 00:00: 00 Yes [id number] 10mg Take 1 tablet by mouth in the morning. [facility] lisinopriL 10 mg tablet 04-06 00:00: 00 Yes [id number] 10mg Take 1 tablet by mouth in the morning. [facility] ciclopirox 0.77 % cream 04-06 00:00: 00 Yes [id number] Apply to area(s) 2 (two) times daily. [facility] METFORMIN 500 mg tablet 2022-08 00:00: 00 07-21 00:00 :00 No [id number] TAKE ONE TABLET BY MOUTH TWICE A DAY WITH MEALS [facility] ondansetron 4 mg tablet 04-04 00:00: 00 Yes [id number] 4mg Take 1 tablet by mouth every 8 (eight) hours as needed for Nausea and Vomiting (N/V). [facility] benzonatate 100 mg capsule 04-04 00:00: 00 Yes [id number] TAKE ONE CAPSULE BY MOUTH THREE TIMES A DAY FOR COUGH [facility] lisinopriL 10 mg tablet 04-04 00:00: 00 04-06 00:00 :00 No [id number] 10mg Take 1 tablet by mouth in the morning. [facility] amLODIPine 10 mg tablet 04-04 00:00: 00 04-06 00:00 :00 No [id number] 10mg Take 1 tablet by mouth in the morning. [facility] Lancets [facility] 03-08 00:00: 00 Yes Use BID, DX E11.9 (Brand upon insurance approval) [facility] Blood-Gluco se Meter (ONETOUCH VERIO FLEX METER) [facility] 02-05 00:00: 00 Yes [id number] Use as directed, twice a day to monitor blood glucose for ICD code E11.9 [facility] Blood-Gluco se Meter (ONETOUCH VERIO FLEX METER) [facility] 02-05 00:00: 00 Yes [id number] Use as directed, twice a day to monitor blood glucose for ICD code E11.9 [facility] triamcinolo ne acetonide (KENALOG) injection 40 mg 12-26 21:00: 00 12-26 20:23 :00 No [id number] 40mg [facility] aspirin 81 mg chewable tablet 12-26 14:59: 02 12-26 00:00 :00 No 81mg Take 1 tablet by mouth in the morning. [facility] Multivitami ns with Fluoride (MULTI-CARLEEN MIN ORAL) 12-26 14:59: 02 12-26 00:00 :00 No Take by mouth daily. Super Beta Prostate [facility] cetirizine (ZYRTEC) 10 mg tablet 12-26 00:00: 00 Yes [id number] 10mg Take 1 tablet by mouth in the morning. [facility] ERGOCALCIFE ROL, VITAMIN D2, 1,250 mcg (50,000 unit) capsule 11-19 00:00: 00 Yes [id number] TAKE ONE CAPSULE BY MOUTH ONCE WEEKLY [facility] albuterol 90 mcg/actuati on inhaler 10-18 00:00: 00 Yes [id number] 2{puff} Inhale 2 Puffs every 6 (six) hours as needed for Wheezing or Shortness of Breath. [facility] LISINOPRIL 10 mg tablet 2021-08 00:00: 00 04-04 00:00 :00 No TAKE ONE TABLET BY MOUTH DAILY [facility] albuterol 90 mcg/actuati on inhaler 2021-08 00:00: 00 10-18 00:00 :00 No [id number] 2{puff} Inhale 2 Puffs every 6 (six) hours as needed for Wheezing or Shortness of Breath. [facility] ciclopirox 0.77 % cream 2021-08 00:00: 00 04-06 00:00 :00 No [id number] Apply to area(s) 2 (two) times daily. [facility] lisinopriL 10 mg tablet 2021-08 10:20: 04 05-21 00:00 :00 No lisinopril 10 mg tablet Take 1 tablet every day by oral route. [facility] METFORMIN 500 mg tablet 2021-08 00:00: 00 05-30 00:00 :00 No [id number] TAKE ONE TABLET BY MOUTH TWICE A DAY WITH MEALS [facility] LISINOPRIL 10 mg tablet 2021-08 00:00: 00 08-16 00:00 :00 No TAKE ONE TABLET BY MOUTH DAILY [facility] cyanocobala min (VITAMIN B12) injection 2,000 mcg 03-09 15:00: 00 06-01 13:58 :00 No [id number] 2000ug 2,000 mcg, Intramuscu lar, [id number], 6 doses, First dose on Sat03/09/22 at 1000, Last dose on Sat05/18/22 at 1000, Routine [facility] aspirin 81 mg chewable tablet 03-09 08:53: 36 Yes 81mg Take 81 mg by mouth daily. [facility] Multivitami ns with Fluoride (MULTI-CARLEEN MIN ORAL) 03-09 08:53: 36 Yes Take by mouth daily. Super Beta Prostate [facility] azelastine- fluticasone 137-50 mcg/spray nasal spray 03-09 08:53: 36 Yes azelastine -fluticaso ne 137 mcg-50 mcg/spray nasal spray [facility] levETIRAcet am 500 mg tablet 03-09 08:53: 36 Yes 250mg Take 250 mg by mouth 2 (two) times daily. [facility] lisinopriL 10 mg tablet 03-09 08:53: 36 Yes lisinopril 10 mg tablet Take 1 tablet every day by oral route. [facility] ergocalcife rol, vitamin d2, (VITAMIN D2) 1,250 mcg (50,000 unit) capsule 03-09 00:00: 00 11-19 00:00 :00 No [id number] 42183W Take 1 capsule by mouth weekly. [facility] ondansetron 4 mg tablet 425 00:00: 00 04-04 00:00 :00 No [id number] 4mg Take 1 tablet by mouth every 8 (eight) hours as needed for Nausea and Vomiting (N/V). [facility] ALBUTEROL 90 mcg/actuati on inhaler 2020-08 1-15 00:00: 00 08-06 00:00 :00 No [id number] INHALE TWO PUFFS BY MOUTH EVERY 6 HOURS NEEDED FOR WHEEZING OR FOR SHORTNESS OF BREATH [facility] METFORMIN 500 mg tablet -13 00:00: 00 05-21 00:00 :00 No [id number] TAKE ONE TABLET BY MOUTH TWICE A DAY WITH MEALS [facility] blood sugar diagnostic (ONETOUCH VERIO TEST STRIPS) strip 03-20 00:00: 00 Yes [id number] USE TWO TIMES A DAY [facility] amLODIPine 10 mg tablet 02-23 00:00: 00 04-04 00:00 :00 No [id number] 10mg Take 1 tablet by mouth daily. [facility] carvediloL 12.5 mg tablet 02-23 00:00: 00 12-26 00:00 :00 No [id number] 12.5mg Take 1 tablet by mouth 2 (two) times daily with meals. [facility] BENZONATATE 100 mg capsule 01-26 00:00: 00 04-04 00:00 :00 No [id number] TAKE ONE CAPSULE BY MOUTH THREE TIMES A DAY FOR COUGH [facility] INNOSPIRE ELEGANCE Yanet 2019-08 0-19 00:00: 00 12-26 00:00 :00 No USE INSTRUCTED - PER PACKAGE INSTRUCTIO NS [facility] ONETOUCH VERIO FLEX METER [facility] 8 00:00: 00 02-05 00:00 :00 No [id number] USE TWO TIMES A DAY [facility] ONETOUCH VERIO FLEX METER [facility] 04-18 00:00: 00 02-05 00:00 :00 No [id number] USE TWO TIMES A DAY [facility] Lancets [facility] 02-11 00:00: 00 Yes Use BID, DX E11.9 (Brand upon insurance approval) [facility] Lancets [facility] 02-11 00:00: 00 03-08 00:00 :00 No Use BID, DX E11.9 (Brand upon insurance approval) [facility] sulfamethox azole-trime thoprim (BACTRIM DS) 800-160 mg per tablet 09-28 00:00: 00 10-09 05:59 :00 No [id number] 1{tbl} Take 1 tablet by mouth 2 (two) times daily for 10 days. [facility] blood sugar diagnostic strip 04-21 00:00: 00 02-11 00:00 :00 No [id number] Check sugars BID times a day. Dx Code E11.9. Brand per insurance. [facility] lancets (BD ULTRA FINE LANCETS) 33 gauge [facility] 04-21 00:00: 00 02-11 00:00 :00 No [id number] Check sugars BID times a day. Dx Code E11.9. Brand per insurance. [facility] cloNIDine 0.2 mg tablet 01-09 00:00: 12-28 00:00 :00 No [id number] .2mg Take 1 tablet by mouth 2 (two) times daily. [facility] Diclofenac Sodium 1 % gel 01-08 00:00: 12-28 00:00 :00 No [id number] Take 2-4 grams three times a day as needed for pain [facility] baclofen 10 mg tablet 12-02 00:00: 12-30 00:00 :00 No 10mg Take 1 tablet by mouth 2 (two) times daily. [facility] metFORMIN 500 mg tablet 12-02 00:00: 11-04 00:00 :00 No [id number] 500mg Take 1 tablet by mouth 2 (two) times daily with meals. [facility] metoprolol succinate 25 mg CSpX 12-02 00:00: 11-04 00:00 :00 No [id number] 25mg Take 25 mg by mouth 2 (two) times daily. [facility] lisinopril 20 mg tablet 12-02 00:00: 11-04 00:00 :00 No [id number] 20mg Take 1 tablet by mouth daily. [facility] doxazosin 1 mg tablet doxazosin 1 mg tablet No doxazosin 1 mg tablet [facility] fluticasone propionate 50 mcg/actuati on nasal spray,suspe nsion fluticasone propionate 50 mcg/actuati on nasal spray,suspe nsion No fluticason e propionate 50 mcg/actuat ion nasal spray,susp ension [facility] furosemide 20 mg tablet furosemide 20 mg tablet No furosemide 20 mg tablet [facility] hydroxyzine HCl 25 mg tablet Take 1 tablet every 6 hours by oral route as needed. hydroxyzine HCl 25 mg tablet Take 1 tablet every 6 hours by oral route as needed. No 1 Q6H hydroxyzin e HCl 25 mg tablet Take 1 tablet every 6 hours by oral route as needed. [facility] ipratropium bromide 0.02 % solution for inhalation ipratropium bromide 0.02 % solution for inhalation No ipratropiu m bromide 0.02 % solution for inhalation [facility] lisinopril 10 mg-hydrochl orothiazide 12.5 mg tablet lisinopril 10 mg-hydrochl orothiazide 12.5 mg tablet No lisinopril 10 mg-hydroch lorothiazi de 12.5 mg tablet [facility] metoprolol succinate ER 25 mg tablet,exte nded release 24 hr Take 1 tablet twice a day by oral route. metoprolol succinate ER 25 mg tablet,exte nded release 24 hr Take 1 tablet twice a day by oral route. No metoprolol succinate ER 25 mg tablet,ext ended release 24 hr Take 1 tablet twice a day by oral route. [facility] montelukast 10 mg tablet montelukast 10 mg tablet No montelukas t 10 mg tablet [facility] omeprazole 40 mg capsule,del ayed release Take 1 capsule every day by oral route. omeprazole 40 mg capsule,del ayed release Take 1 capsule every day by oral route. No omeprazole 40 mg capsule,de layed release Take 1 capsule every day by oral route. [facility] OneTouch Delica Plus Lancet 33 gauge OneTouch Delica Plus Lancet 33 gauge No OneTouch Delica Plus Lancet 33 gauge [facility] OneTouch Verio Flex Meter OneTouch Verio Flex Meter No OneTouch Verio Flex Meter [facility] OneTouch Verio test strips OneTouch Verio test strips No OneTouch Verio test strips [facility] tamsulosin 0.4 mg capsule tamsulosin 0.4 mg capsule No tamsulosin 0.4 mg capsule [facility] albuterol sulfate 0.63 mg/3 mL solution for nebulizatio n albuterol sulfate 0.63 mg/3 mL solution for nebulizatio n No albuterol sulfate 0.63 mg/3 mL solution for nebulizati on [facility] Immunizations Ordered Immunization Name Filled Immunization Name Date Status Comments Source Influenza High Dose Quad 2024-04-30 00:00:00 Completed [facility] Influenza High Dose 2023-06-06 00:00:00 Completed [facility] Pneumococcal 13 Conjugate, PCV13 (Prevnar 13) 2023-06-06 00:00:00 Completed [facility] Influenza High Dose Quad 2023-06-06 00:00:00 Completed [facility] Pneumococcal Polysaccharide, PPSV23 (PNEUMOVAX) 2023-06-06 00:00:00 Completed [facility] Influenza High Dose 2023-05-29 00:00:00 Completed [facility] Pneumococcal 13 Conjugate, PCV13 (Prevnar 13) 2023-05-29 00:00:00 Completed [facility] Influenza High Dose Quad 2023-05-29 00:00:00 Completed [facility] Pneumococcal Polysaccharide, PPSV23 (PNEUMOVAX) 2023-05-29 00:00:00 Completed [facility] Influenza High Dose 2022-04-27 00:00:00 Completed [facility] Pneumococcal 13 Conjugate, PCV13 (Prevnar 13) 2022-04-27 00:00:00 Completed [facility] Influenza High Dose Quad 2022-04-27 00:00:00 Completed [facility] Pneumococcal Polysaccharide, PPSV23 (PNEUMOVAX) 2022-04-27 00:00:00 Completed [facility] Influenza High Dose 2022-01-02 00:00:00 Completed [facility] Pneumococcal 13 Conjugate, PCV13 (Prevnar 13) 2022-01-02 00:00:00 Completed [facility] Influenza High Dose Quad 2022-01-02 00:00:00 Completed [facility] Pneumococcal Polysaccharide, PPSV23 (PNEUMOVAX) 2022-01-02 00:00:00 Completed [facility] Influenza High Dose 2022-01-01 00:00:00 Completed [facility] Pneumococcal 13 Conjugate, PCV13 (Prevnar 13) 2022-01-01 00:00:00 Completed [facility] Influenza High Dose Quad 2022-01-01 00:00:00 Completed [facility] Pneumococcal Polysaccharide, PPSV23 (PNEUMOVAX) 2022-01-01 00:00:00 Completed [facility] Influenza High Dose 2021-12-18 00:00:00 Completed [facility] Pneumococcal 13 Conjugate, PCV13 (Prevnar 13) 2021-12-18 00:00:00 Completed [facility] Influenza High Dose Quad 2021-12-18 00:00:00 Completed [facility] Pneumococcal Polysaccharide, PPSV23 (PNEUMOVAX) 2021-12-18 00:00:00 Completed [facility] Influenza High Dose 2020-06-22 00:00:00 Completed [facility] Pneumococcal 13 Conjugate, PCV13 (Prevnar 13) 2020-06-22 00:00:00 Completed [facility] Influenza High Dose Quad 2020-06-22 00:00:00 Completed [facility] Pneumococcal Polysaccharide, PPSV23 (PNEUMOVAX) 2020-06-22 00:00:00 Completed [facility] Influenza High Dose Quad 2020-05-23 00:00:00 Completed [facility] Influenza High Dose Quad 2020-05-23 00:00:00 Completed [facility] Influenza High Dose Quad 2020-05-23 00:00:00 Completed [facility] Influenza High Dose Quad 2020-05-23 00:00:00 Completed [facility] Influenza High Dose Quad 2020-05-23 00:00:00 Completed [facility] Influenza High Dose Quad 2020-05-23 00:00:00 Completed [facility] Influenza High Dose Quad 2020-05-23 00:00:00 Completed [facility] [facility] Influenza High Dose Quad 2020-05-23 00:00:00 Completed [facility] Influenza High Dose Quad 2020-05-23 00:00:00 Completed [facility] Influenza High Dose Quad 2020-05-23 00:00:00 Completed [facility] Influenza High Dose Quad 2020-05-23 00:00:00 Completed [facility] Influenza High Dose Quad 2020-05-23 00:00:00 Completed [facility] Influenza High Dose Quad 2020-05-23 00:00:00 Completed [facility] Influenza High Dose Quad 2020-05-23 00:00:00 Completed [facility] Influenza High Dose Quad 2020-05-23 00:00:00 Completed [facility] Influenza High Dose Quad 2020-05-23 00:00:00 Completed [facility] Influenza High Dose Quad 2020-05-23 00:00:00 Completed [facility] Influenza High Dose Quad 2020-05-23 00:00:00 Completed [facility] Influenza High Dose Quad 2020-05-23 00:00:00 Completed [facility] Influenza High Dose Quad 2020-05-23 00:00:00 Completed [facility] Influenza High Dose Quad 2020-05-23 00:00:00 Completed [facility] Influenza High Dose Quad 2020-05-23 00:00:00 Completed [facility] Influenza High Dose Quad 2020-05-23 00:00:00 Completed [facility] Influenza High Dose Quad 2020-05-23 00:00:00 Completed [facility] Influenza High Dose Quad 2020-05-23 00:00:00 Completed [facility] Influenza High Dose Quad 2020-05-23 00:00:00 Completed [facility] Influenza High Dose Quad 2020-05-23 00:00:00 Completed [facility] Influenza High Dose Quad 2020-05-23 00:00:00 Completed [facility] Influenza High Dose Quad 2020-05-23 00:00:00 Completed [facility] Influenza High Dose Quad 2020-05-23 00:00:00 Completed [facility] Influenza High Dose Quad 2020-05-23 00:00:00 Completed [facility] Influenza High Dose Quad 2020-05-23 00:00:00 Completed [facility] Influenza High Dose Quad 2020-05-23 00:00:00 Completed [facility] Influenza High Dose Quad 2020-05-23 00:00:00 Completed [facility] Influenza High Dose Quad 2020-05-23 00:00:00 Completed [facility] Influenza High Dose Quad 2020-05-23 00:00:00 Completed [facility] Influenza High Dose Quad 2020-05-23 00:00:00 Completed [facility] Influenza High Dose 2019-09-28 00:00:00 Completed [facility] Pneumococcal 13 Conjugate, PCV13 (Prevnar 13) 2019-09-28 00:00:00 Completed [facility] Pneumococcal Polysaccharide, PPSV23 (PNEUMOVAX) 2019-09-28 00:00:00 Completed [facility] Pneumococcal 13 Conjugate, PCV13 (Prevnar 13) 2019-06-19 00:00:00 Completed [facility] Pneumococcal 13 Conjugate, PCV13 (Prevnar 13) 2019-06-19 00:00:00 Completed [facility] Pneumococcal 13 Conjugate, PCV13 (Prevnar 13) 2019-06-19 00:00:00 Completed [facility] Pneumococcal 13 Conjugate, PCV13 (Prevnar 13) 2019-06-19 00:00:00 Completed [facility] Pneumococcal 13 Conjugate, PCV13 (Prevnar 13) 2019-06-19 00:00:00 Completed [facility] Pneumococcal 13 Conjugate, PCV13 (Prevnar 13) 2019-06-19 00:00:00 Completed [facility] Pneumococcal 13 Conjugate, PCV13 (Prevnar 13) 2019-06-19 00:00:00 Completed [facility] Pneumococcal 13 Conjugate, PCV13 (Prevnar 13) 2019-06-19 00:00:00 Completed [facility] Pneumococcal 13 Conjugate, PCV13 (Prevnar 13) 2019-06-19 00:00:00 Completed [facility] Pneumococcal 13 Conjugate, PCV13 (Prevnar 13) 2019-06-19 00:00:00 Completed [facility] Pneumococcal 13 Conjugate, PCV13 (Prevnar 13) 2019-06-19 00:00:00 Completed [facility] Pneumococcal 13 Conjugate, PCV13 (Prevnar 13) 2019-06-19 00:00:00 Completed [facility] Pneumococcal 13 Conjugate, PCV13 (Prevnar 13) 2019-06-19 00:00:00 Completed [facility] Pneumococcal 13 Conjugate, PCV13 (Prevnar 13) 2019-06-19 00:00:00 Completed [facility] Pneumococcal 13 Conjugate, PCV13 (Prevnar 13) 2019-06-19 00:00:00 Completed [facility] Pneumococcal 13 Conjugate, PCV13 (Prevnar 13) 2019-06-19 00:00:00 Completed [facility] Pneumococcal 13 Conjugate, PCV13 (Prevnar 13) 2019-06-19 00:00:00 Completed [facility] Pneumococcal 13 Conjugate, PCV13 (Prevnar 13) 2019-06-19 00:00:00 Completed [facility] Pneumococcal 13 Conjugate, PCV13 (Prevnar 13) 2019-06-19 00:00:00 Completed [facility] Pneumococcal 13 Conjugate, PCV13 (Prevnar 13) 2019-06-19 00:00:00 Completed [facility] Pneumococcal 13 Conjugate, PCV13 (Prevnar 13) 2019-06-19 00:00:00 Completed [facility] Pneumococcal 13 Conjugate, PCV13 (Prevnar 13) 2019-06-19 00:00:00 Completed [facility] Pneumococcal 13 Conjugate, PCV13 (Prevnar 13) 2019-06-19 00:00:00 Completed [facility] Pneumococcal 13 Conjugate, PCV13 (Prevnar 13) 2019-06-19 00:00:00 Completed [facility] Pneumococcal 13 Conjugate, PCV13 (Prevnar 13) 2019-06-19 00:00:00 Completed [facility] Pneumococcal 13 Conjugate, PCV13 (Prevnar 13) 2019-06-19 00:00:00 Completed [facility] Pneumococcal 13 Conjugate, PCV13 (Prevnar 13) 2019-06-19 00:00:00 Completed [facility] Pneumococcal 13 Conjugate, PCV13 (Prevnar 13) 2019-06-19 00:00:00 Completed [facility] Pneumococcal 13 Conjugate, PCV13 (Prevnar 13) 2019-06-19 00:00:00 Completed [facility] Pneumococcal 13 Conjugate, PCV13 (Prevnar 13) 2019-06-19 00:00:00 Completed [facility] Pneumococcal 13 Conjugate, PCV13 (Prevnar 13) 2019-06-19 00:00:00 Completed [facility] Pneumococcal 13 Conjugate, PCV13 (Prevnar 13) 2019-06-19 00:00:00 Completed [facility] Pneumococcal 13 Conjugate, PCV13 (Prevnar 13) 2019-06-19 00:00:00 Completed [facility] Pneumococcal 13 Conjugate, PCV13 (Prevnar 13) 2019-06-19 00:00:00 Completed [facility] Pneumococcal 13 Conjugate, PCV13 (Prevnar 13) 2019-06-19 00:00:00 Completed [facility] Pneumococcal 13 Conjugate, PCV13 (Prevnar 13) 2019-06-19 00:00:00 Completed [facility] Pneumococcal 13 Conjugate, PCV13 (Prevnar 13) 2019-06-19 00:00:00 Completed [facility] Influenza High Dose 2019-06-16 00:00:00 Completed [facility] Influenza High Dose 2019-06-16 00:00:00 Completed [facility] Influenza High Dose 2019-06-16 00:00:00 Completed [facility] Influenza High Dose 2019-06-16 00:00:00 Completed [facility] Influenza High Dose 2019-06-16 00:00:00 Completed [facility] Influenza High Dose 2019-06-16 00:00:00 Completed [facility] Influenza High Dose 2019-06-16 00:00:00 Completed [facility] Influenza High Dose 2019-06-16 00:00:00 Completed [facility] Influenza High Dose 2019-06-16 00:00:00 Completed [facility] Influenza High Dose 2019-06-16 00:00:00 Completed [facility] Influenza High Dose 2019-06-16 00:00:00 Completed [facility] Influenza High Dose 2019-06-16 00:00:00 Completed [facility] Influenza High Dose 2019-06-16 00:00:00 Completed [facility] Influenza High Dose 2019-06-16 00:00:00 Completed [facility] Influenza High Dose 2019-06-16 00:00:00 Completed [facility] Influenza High Dose 2019-06-16 00:00:00 Completed [facility] Influenza High Dose 2019-06-16 00:00:00 Completed [facility] Influenza High Dose 2019-06-16 00:00:00 Completed [facility] Influenza High Dose 2019-06-16 00:00:00 Completed [facility] Influenza High Dose 2019-06-16 00:00:00 Completed [facility] Influenza High Dose 2019-06-16 00:00:00 Completed [facility] Influenza High Dose 2019-06-16 00:00:00 Completed [facility] Influenza High Dose 2019-06-16 00:00:00 Completed [facility] Influenza High Dose 2019-06-16 00:00:00 Completed [facility] Influenza High Dose 2019-06-16 00:00:00 Completed [facility] Influenza High Dose 2019-06-16 00:00:00 Completed [facility] Influenza High Dose 2019-06-16 00:00:00 Completed [facility] Influenza High Dose 2019-06-16 00:00:00 Completed [facility] Influenza High Dose 2019-06-16 00:00:00 Completed [facility] Influenza High Dose 2019-06-16 00:00:00 Completed [facility] Influenza High Dose 2019-06-16 00:00:00 Completed [facility] Influenza High Dose 2019-06-16 00:00:00 Completed [facility] Influenza High Dose 2019-06-16 00:00:00 Completed [facility] Influenza High Dose 2019-06-16 00:00:00 Completed [facility] Influenza High Dose 2019-06-16 00:00:00 Completed [facility] Influenza High Dose 2019-06-16 00:00:00 Completed [facility] Influenza High Dose 2019-06-16 00:00:00 Completed [facility] Pneumococcal Polysaccharide, PPSV23 (PNEUMOVAX) 2018-12-31 00:00:00 Completed [facility] Pneumococcal Polysaccharide, PPSV23 (PNEUMOVAX) 2018-12-31 00:00:00 Completed [facility] Pneumococcal Polysaccharide, PPSV23 (PNEUMOVAX) 2018-12-31 00:00:00 Completed [facility] Pneumococcal Polysaccharide, PPSV23 (PNEUMOVAX) 2018-12-31 00:00:00 Completed [facility] Pneumococcal Polysaccharide, PPSV23 (PNEUMOVAX) 2018-12-31 00:00:00 Completed [facility] Pneumococcal Polysaccharide, PPSV23 (PNEUMOVAX) 2018-12-31 00:00:00 Completed [facility] Pneumococcal Polysaccharide, PPSV23 (PNEUMOVAX) 2018-12-31 00:00:00 Completed [facility] Pneumococcal Polysaccharide, PPSV23 (PNEUMOVAX) 2018-12-31 00:00:00 Completed [facility] Pneumococcal Polysaccharide, PPSV23 (PNEUMOVAX) 2018-12-31 00:00:00 Completed [facility] Pneumococcal Polysaccharide, PPSV23 (PNEUMOVAX) 2018-12-31 00:00:00 Completed [facility] Pneumococcal Polysaccharide, PPSV23 (PNEUMOVAX) 2018-12-31 00:00:00 Completed [facility] Pneumococcal Polysaccharide, PPSV23 (PNEUMOVAX) 2018-12-31 00:00:00 Completed [facility] Pneumococcal Polysaccharide, PPSV23 (PNEUMOVAX) 2018-12-31 00:00:00 Completed [facility] Pneumococcal Polysaccharide, PPSV23 (PNEUMOVAX) 2018-12-31 00:00:00 Completed [facility] Pneumococcal Polysaccharide, PPSV23 (PNEUMOVAX) 2018-12-31 00:00:00 Completed [facility] Pneumococcal Polysaccharide, PPSV23 (PNEUMOVAX) 2018-12-31 00:00:00 Completed [facility] Pneumococcal Polysaccharide, PPSV23 (PNEUMOVAX) 2018-12-31 00:00:00 Completed [facility] Pneumococcal Polysaccharide, PPSV23 (PNEUMOVAX) 2018-12-31 00:00:00 Completed [facility] Pneumococcal Polysaccharide, PPSV23 (PNEUMOVAX) 2018-12-31 00:00:00 Completed [facility] Pneumococcal Polysaccharide, PPSV23 (PNEUMOVAX) 2018-12-31 00:00:00 Completed [facility] Pneumococcal Polysaccharide, PPSV23 (PNEUMOVAX) 2018-12-31 00:00:00 Completed [facility] Pneumococcal Polysaccharide, PPSV23 (PNEUMOVAX) 2018-12-31 00:00:00 Completed [facility] Pneumococcal Polysaccharide, PPSV23 (PNEUMOVAX) 2018-12-31 00:00:00 Completed [facility] Pneumococcal Polysaccharide, PPSV23 (PNEUMOVAX) 2018-12-31 00:00:00 Completed [facility] Pneumococcal Polysaccharide, PPSV23 (PNEUMOVAX) 2018-12-31 00:00:00 Completed [facility] Pneumococcal Polysaccharide, PPSV23 (PNEUMOVAX) 2018-12-31 00:00:00 Completed [facility] Pneumococcal Polysaccharide, PPSV23 (PNEUMOVAX) 2018-12-31 00:00:00 Completed [facility] Pneumococcal Polysaccharide, PPSV23 (PNEUMOVAX) 2018-12-31 00:00:00 Completed [facility] Pneumococcal Polysaccharide, PPSV23 (PNEUMOVAX) 2018-12-31 00:00:00 Completed [facility] Pneumococcal Polysaccharide, PPSV23 (PNEUMOVAX) 2018-12-31 00:00:00 Completed [facility] Pneumococcal Polysaccharide, PPSV23 (PNEUMOVAX) 2018-12-31 00:00:00 Completed [facility] Pneumococcal Polysaccharide, PPSV23 (PNEUMOVAX) 2018-12-31 00:00:00 Completed [facility] Pneumococcal Polysaccharide, PPSV23 (PNEUMOVAX) 2018-12-31 00:00:00 Completed [facility] Pneumococcal Polysaccharide, PPSV23 (PNEUMOVAX) 2018-12-31 00:00:00 Completed [facility] Pneumococcal Polysaccharide, PPSV23 (PNEUMOVAX) 2018-12-31 00:00:00 Completed [facility] Pneumococcal Polysaccharide, PPSV23 (PNEUMOVAX) 2018-12-31 00:00:00 Completed [facility] Pneumococcal Polysaccharide, PPSV23 (PNEUMOVAX) 2018-12-31 00:00:00 Completed [facility] Influenza, High-Dose, Trivalent, PF (FLUZONE) 2018-05-27 00:00:00 Completed [facility] Influenza, High-Dose, Trivalent, PF (FLUZONE) 2017-06-13 00:00:00 Completed Vital Signs Vital Name Observation Time Observation Value Comments S ource Systolic blood pressure 2024-04-06 14:32:00 183 mm[Hg] [facility] Diastolic blood pressure 2024-04-06 14:32:00 84 mm[Hg] [facility] Heart rate 2024-04-06 14:31:00 62 /min [facility] Body height 2024-04-06 14:31:00 162.6 cm [facility] Body weight 2024-04-06 14:31:00 71.578 kg [facility] BMI 2024-04-06 14:31:00 27.09 kg/m2 [facility] Oxygen saturation in Arterial blood by Pulse oximetry 2024-04-06 14:31:00 100 /min [facility] Systolic blood pressure 2023-04-04 13:18:00 181 mm[Hg] [facility] Diastolic blood pressure 2023-04-04 13:18:00 76 mm[Hg] [facility] Heart rate 2023-04-04 13:17:00 65 /min [facility] Body height 2023-04-04 13:17:00 162.6 cm [facility] Body weight 2023-04-04 13:17:00 67.903 kg [facility] BMI 2023-04-04 13:17:00 25.70 kg/m2 [facility] Oxygen saturation in Arterial blood by Pulse oximetry 2023-04-04 13:17:00 100 /min [facility] Systolic blood pressure 2022-12-26 19:58:00 138 mm[Hg] [facility] Diastolic blood pressure 2022-12-26 19:58:00 77 mm[Hg] [facility] Heart rate 2022-12-26 19:57:00 89 /min [facility] Body temperature 2022-12-26 19:57:00 36.83 Karie [facility] Body height 2022-12-26 19:57:00 162.6 cm [facility] Body weight 2022-12-26 19:57:00 70.761 kg [facility] BMI 2022-12-26 19:57:00 26.78 kg/m2 [facility] Oxygen saturation in Arterial blood by Pulse oximetry 2022-12-26 19:57:00 99 /min [facility] Systolic blood pressure 2022-06-12 18:34:00 178 mm[Hg] [facility] Diastolic blood pressure 2022-06-12 18:34:00 90 mm[Hg] [facility] Heart rate 2022-06-12 18:33:00 66 /min [facility] Body temperature 2022-06-12 18:33:00 36.56 Karie [facility] Body height 2022-06-12 18:33:00 165.1 cm [facility] Body weight 2022-06-12 18:33:00 69.4 kg [facility] BMI 2022-06-12 18:33:00 25.46 kg/m2 [facility] Oxygen saturation in Arterial blood by Pulse oximetry 2022-06-12 18:33:00 100 /min [facility] Systolic blood pressure 2022-03-09 13:53:00 153 mm[Hg] [facility] Diastolic blood pressure 2022-03-09 13:53:00 80 mm[Hg] [facility] Heart rate 2022-03-09 13:52:00 64 /min [facility] Body temperature 2022-03-09 13:52:00 36.56 Karie [facility] Respiratory rate 2022-03-09 13:52:00 18 /min [facility] Body weight 2022-03-09 13:52:00 68.811 kg [facility] BMI 2022-03-09 13:52:00 25.24 kg/m2 [facility] Oxygen saturation in Arterial blood by Pulse oximetry 2022-03-09 13:52:00 99 /min [facility] BP Diastolic 2020-11-29 00:00:00 82 mm[Hg] [facility] Height 2020-11-29 00:00:00 64 [in_i] [facility] BMI (Body Mass Index) 2020-11-29 00:00:00 25.9 kg/m2 [facility] BP Systolic 2020-11-29 00:00:00 188 mm[Hg] [facility] Body Weight 2020-11-29 00:00:00 150.8 [lb_av] [facility] BP Diastolic 2020-05-31 00:00:00 65 mm[Hg] [facility] Height 2020-05-31 00:00:00 64 [in_i] [facility] BMI (Body Mass Index) 2020-05-31 00:00:00 25.7 kg/m2 [facility] BP Systolic 2020-05-31 00:00:00 120 mm[Hg] [facility] Body Weight 2020-05-31 00:00:00 150 [lb_av] [facility] BP Diastolic 2020-04-18 00:00:00 70 mm[Hg] [facility] Height 2020-04-18 00:00:00 64 [in_i] [facility] BMI (Body Mass Index) 2020-04-18 00:00:00 25.2 kg/m2 [facility] BP Systolic 2020-04-18 00:00:00 118 mm[Hg] [facility] Body Weight 2020-04-18 00:00:00 146.7 [lb_av] [facility] Procedures Procedure Date / Time Performed Performing Clinician Source VITAMIN B12, LEVEL 2023-04-04 14:55:00 [facility] MICROALBUMIN URINE 2023-04-04 14:55:00 [facility] COMP. METABOLIC PANEL (39673) 2023-04-04 14:55:00 [facility] LIPID PANEL (57521)(TOTAL CHOLESTEROL, TRIGLYCERIDES, HDL) 2023-04-04 14:55:00 [facility] CBC WITHOUT DIFF 2023-04-04 14:55:00 Julissa Giles [facility] GLYCOSYLATED HEMOGLOBIN (A1C) 2023-04-04 14:55:00 [facility] URINALYSIS 2023-04-04 14:55:00 Julissa Giles [facility] VITAMIN D, 25-OH 2023-04-04 14:55:00 Julissa Giles [facility] EXTERNAL PROVIDER RECORDS 2023-04-01 05:01:00 Do ctor Unassigned, Iyanbito [facility] MEDICATION CORRESPONDENCE 2023-02-01 05:01:00 Do ctor Unassigned, Iyanbito [facility] PATIENT FINANCIAL POLICY 2022-12-26 19:35:47 Doctor Unassigned, Iyanbito [facility] DME/SUPPLY JUSTIFICATION 2022-08-27 06:01:00 Doc tor Unassigned, Iyanbito [facility] REFERRAL- REQUEST/RESPONSE 2022-06-26 06:01:00 Doctor Unassigned, Iyanbito [facility] DME/SUPPLY JUSTIFICATION 2022-06-12 05:01:00 Doc tor Unassigned, Iyanbito [facility] sudeep [facility] Encounters Start Date/Time End Date/Time Encounter Type Admission Type Attending Clinicians Care Facility Care Department Encounter ID Source 2021-06-18 04:21:28 Outpatient BRENDA PIERSON [facility] TATUM [id number] [facility] 2021-06-17 04:51:04 Outpatient GINETTE COUCH [facility] JOHANNA [id number] [facility] 2021-06-16 14:17:[address] [facility] [id number] [facility] 2021-06-15 22:09:[address] [facility] [id number] [facility] 2024-10-12 08:00:00 2024-10-12 08:00:00 Outpatient JULISSA KYLE CHRISTINE [facility] [id number] [facility] 2024-07-21 00:00:00 2024-07-22 15:30:15 [facility] [id number] [facility] 2024-04-30 00:00:00 2024-04-30 09:22:02 [facility] [id number] [facility] 2024-04-16 00:00:00 2024-04-16 11:18:25 [facility] [id number] [facility] 2024-04-06 10:30:00 2024-04-06 10:30:22 Supervisor Accounting Clerks Visit Lab, Ang - Julissa [facility] [id number] [facility] 2024-04-06 09:00:00 2024-04-06 09:52:44 Outpatient R ANTOLINJULISSA, JULISSA [facility] [id number] [facility] 2024-04-06 09:00:00 2024-04-06 09:52:44 Nurse Visit C[facility], Medicare Wellness Julissa Lopez Cbc, Medicare Wellness [facility] [place]?[facility] OFF[facility] BU[facility] 1.2.840.114 350.1.13.10 4.2.7.2.686 [id number] 044 [id number] [facility] 2019-09-28 00:00:00 2024-04-02 08:53:28 Refill Doctor Unassigned, Iyanbito Doctor Unassigned, Iyanbito [facility] BUILDING 1..840.114 350.1.13.10 4.2.7.2.686 [id number] 044 [id number] [facility] 2023-06-06 00:00:00 2023-06-06 00:00:00 Telephone Antolin [facility] [place]?[facility] MEDICAL OFFICE BUILDING 1.2.840.114 350.1.13.10 4.2.7.2.686 [id number] 044 [id number] [facility] 2023-05-29 00:00:00 2023-05-29 00:00:00 Refill Sheila Ortiz [facility] BUILDING 1.2.840.114 350.1.13.10 4.2.7.2.686 [id number] [facility] 2023-04-04 09:45:00 2023-04-04 10:25:19 Supervisor Accounting Clerks Visit Lab, Billy Giles [facility] 1.2.840.114 350.1.13.10 4.2.7.2.686 [id number] [facility] 2023-04-04 08:40:00 2023-04-04 09:49:49 Outpatient R JULISSA GILES [facility] [id number] [facility] 2023-04-04 08:40:00 2023-04-04 09:49:49 [facility] BU[facility] 1.2840.114 350.1.13.10 4.2.7.2.686 [id number] 044 [id number] [facility] 2023-04-01 00:00:00 2023-04-01 00:00:00 Orders Only Doctor Unassigned, Iyanbito [facility] 1.2.114 350.1.13.10 4.2.7.2.686 [id number] [facility] 2023-03-08 00:00:00 2023-03-08 00:00:00 [facility]phone [facility] MED[facility] OFF[facility] BUILDING 1.84.114 350.1.13.10 4.2.7.2.686 [id number] 044 [id number] [facility] 2023-03-01 08:00:00 2023-03-01 08:00:00 Outpatient R JULISSA GILES [facility] [id number] [facility] 2023-02-04 00:00:00 2023-02-04 00:00:00 [facility]ill [facility] MED[facility] OFF[facility] BUILDING 1.284.114 350.1.13.10 4.2.7.2.686 [id number] [id number] [facility] 2023-02-01 00:00:00 2023-02-01 00:00:00 Orders Only Doctor Unassigned, Iyanbito [facility] 1.2840.114 350.1.13.10 4.2.7.2.686 [id number] [facility] 2022-12-26 14:30:00 2022-12-26 15:00:00 Office Visit IdalmisNadia muhammad [facility] [place] 1.284.114 350.1.13.10 4.2.7.2.686 [id number] [id number] [facility] 2022-12-26 14:30:00 2022-12-26 14:30:00 Outpatient R IDALMISNADIA Muhammad [facility] [id number] [facility] 2022-12-26 00:00:00 2022-12-26 00:00:00 Orders Only Doctor Unassigned, Iyanbito [facility] 1..114 350.1.13.10 4.2.7.2.686 [id number] [facility] 2022-11-18 00:00:00 2022-11-18 00:00:00 Sheila Vick [facility] PROFESSIO NAL BUILDING 1.84.114 350.1.13.10 4.2.7.2.686 [id number] [facility] 2022-11-12 14:00:00 2022-11-12 14:00:00 Outpatient R JULISSA GILES JULISSA [facility] [id number] [facility] 2022-11-09 00:00:00 2022-11-09 00:00:00 Telephone Antolin [facility] 1.84.114 350.1.13.10 4.2.7.2.686 [id number] 044 [id number] [facility] 2022-10-18 00:00:00 2022-10-18 00:00:00 Telephone Antolin [facility] [place]?[facility] MED[facility] OFF[facility] BUILDING 1.84.114 350.1.13.10 4.2.7.2.686 [id number] 044 [id number] [facility] 2022-10-17 00:00:00 2022-10-17 00:00:00 Refill Antolin [facility] [place]?[facility] MED[facility] OFF[facility] BUILDING 1.2.840.114 350.1.13.10 4.2.7.2.686 [id number] 044 [id number] [facility] 2022-09-11 10:40:00 2022-09-11 10:40:00 Outpatient R ANTOLIN [facility] [id number] [facility] 2022-08-27 00:00:00 2022-08-27 00:00:00 Orders Only Doctor Unassigned, Iyanbito [facility] 1.840.114 350.1.13.10 4.2.7.2.686 [id number] [facility] 2022-08-22 00:00:00 2022-08-22 00:00:00 Telephone Antolin [facility] [place]?[facility] MED[facility] OFF[facility] BUILDING 1.840.114 350.1.13.10 4.2.7.2.686 [id number] 044 [id number] [facility] 2022-08-20 00:00:00 2022-08-20 00:00:00 Telephone Antolin [facility] 1.840.114 350.1.13.10 4.2.7.2.686 [id number] [id number] [facility] 2022-08-18 00:00:00 2022-08-18 00:00:00 Refill Sheila Ortiz [facility] NAL BUILDING 1.2.840.114 350.1.13.10 4.2.7.2.686 [id number] 044 [id number] [facility] 2022-08-16 00:00:00 2022-08-16 00:00:00 Refill Sheila Ortiz [facility] NAL BUILDING 1.2.840.114 350.1.13.10 4.2.7.2.686 [id number] 044 [id number] [facility] 2022-08-03 00:00:00 2022-08-03 00:00:00 Refill Sheila Ortiz [facility] BUILDING 1.2.840.114 350.1.13.10 4.2.7.2.686 [id number] [id number] [facility] 2022-08-03 00:00:00 2022-08-03 00:00:00 Refill Antolin [facility] MEDICAL OFFICE BUILDING 1.2.840.114 350.1.13.10 4.2.7.2.686 [id number] [id number] [facility] 2022-07-24 00:00:00 2022-07-24 00:00:00 Telephone [facility] MEDICAL OFFICE BUILDING 1.2.840.114 350.1.13.10 4.2.7.2.686 [id number] 044 [id number] [facility] 2022-07-18 00:00:00 2022-07-18 00:00:00 Telephone Abby Fernandez [facility] BUILDING 1.2.840.114 350.1.13.10 4.2.7.2.686 [id number] 044 [id number] [facility] 2022-07-09 00:00:00 2022-07-09 00:00:00 Nurse Triage Guadaluep Saucedo [facility] 1.2.840.114 350.1.13.10 4.2.7.2.686 [id number] [facility] 2022-06-26 00:00:00 2022-06-26 00:00:00 Telephone [facility] 1.2840.114 350.1.13.10 4.2.7.2.686 [id number] 044 [id number] [facility] 2022-06-26 00:00:00 2022-06-26 00:00:00 Orders Only Doctor Unassigned, Iyanbito [facility] 1.2840.114 350.1.13.10 4.2.7.2.686 [id number] [facility] 2022-06-20 00:00:00 2022-06-20 00:00:00 Telephone Antolin [facility] [place]?[facility] MEDICAL OFFICE BUILDING 1.2840.114 350.1.13.10 4.2.7.2.686 [id number] 044 [id number] [facility] 2022-06-13 00:00:00 2022-06-13 00:00:00 Telephone Antolin [facility] MEDICAL OFFICE BUILDING 1.20.114 350.1.13.10 4.2.7.2.686 [id number] 044 [id number] [facility] 2022-06-12 13:20:00 2022-06-12 14:54:36 Outpatient R ANTOLIN [facility] [id number] [facility] 2022-06-12 13:20:00 2022-06-12 14:54:36 Office Visit Antolin [facility] MEDICAL OFFICE BUILDING 1.20.114 350.1.13.10 4.2.7.2.686 [id number] 044 [id number] [facility] 2022-06-12 00:00:00 2022-06-12 00:00:00 Orders Only Doctor Unassigned, Iyanbito [facility] 1.2840.114 350.1.13.10 4.2.7.2.686 [id number] [facility] 2022-06-11 08:40:00 2022-06-11 08:40:00 Outpatient SHEILA ALMEIDA [facility] [id number] [facility] 2022-06-01 09:00:00 2022-06-01 09:20:00 Nurse Visit Nurse, [facility] 1.2.840.114 350.1.13.10 4.2.7.2.686 [id number] 044 [id number] [facility] 2022-06-01 09:00:00 2022-06-01 09:00:00 Outpatient SHEILA ALMEIDA [facility] [id number] [facility] 2022-05-29 00:00:00 2022-05-29 00:00:00 Sheila Oliveira [facility] 1.2.840.114 350.1.13.10 4.2.7.2.686 [id number] 044 [id number] [facility] 2022-05-20 00:00:00 2022-05-20 00:00:00 Refill Sheila Ortiz [facility] 1.2.840.114 350.1.13.10 4.2.7.2.686 [id number] [facility] 2022-05-18 10:00:00 2022-05-18 10:57:43 Outpatient SHEILA ALMEIDA [facility] [id number] [facility] 2022-05-18 10:00:00 2022-05-18 10:20:00 Nurse Visit Nurse, [facility] OrtizKimmySheila [facility] 1.2.840.114 350.1.13.10 4.2.7.2.686 [id number] [id number] [facility] 2022-05-11 09:00:00 2022-05-11 09:00:00 Outpatient R KIMMY ORTIZZABETH [facility] [id number] [facility] 2022-05-04 10:00:00 2022-05-04 10:00:00 Outpatient R [facility] [id number] [facility] 2022-04-27 00:00:00 2022-04-27 00:00:00 Patient Secure Mag Sheila Ortiz [facility] PROFESSIO [facility] BUILDING 1.2.840.114 350.1.13.10 4.2.7.2.686 [id number] [id number] [facility] 2022-04-27 00:00:00 2022-04-27 00:00:00 Patient Secure Sheila Pruitt [facility] BUILDING 1.2.840.114 350.1.13.10 4.2.7.2.686 [id number] [facility] 2022-04-26 00:00:00 2022-04-26 00:00:00 Telephone [facility] 1.2.840.114 350.1.13.10 4.2.7.2.686 [id number] [facility] 2022-04-20 09:40:00 2022-04-20 10:20:00 Outpatient R ORTIZKIMMYSHEILA [facility] [id number] [facility] 2022-04-20 09:40:00 2022-04-20 10:20:00 Nurse Visit Nurse, [facility] Kimmy Ortizzanicolas Muhammad [facility] BUILDING 1.2.840.114 350.1.13.10 4.2.7.2.686 [id number] [facility] 2022-04-06 09:00:00 2022-04-06 09:24:01 Outpatient SHEILA ALMEIDA [facility] [id number] [facility] 2022-04-06 09:00:00 2022-04-06 09:24:01 Nurse Visit Nurse, [facility] Kimmy Ortizzanicolas Muhammad [facility] 1.2.840.114 350.1.13.10 4.2.7.2.686 [id number] [facility] 2022-03-28 15:00:00 2022-03-28 15:00:00 Outpatient Sarai DIAZHENRI [facility] [id number] [facility] 2022-03-28 15:00:00 2022-03-28 15:00:00 Outpatient R DIAZHENRI [facility] [id number] [facility] 2022-03-23 09:00:00 2022-03-23 09:19:33 Outpatient R SHEILA OTRIZ [facility] [id number] [facility] 2022-03-23 09:00:00 2022-03-23 09:19:33 Nurse Visit Nurse, [facility] Kimmy Ortizzabeth [facility] 1.2.840.114 350.1.13.10 4.2.7.2.686 [id number] 044 [id number] [facility] 2022-03-21 00:00:00 2022-03-21 00:00:00 Telephone Sheila Ortiz [facility] 1.2.840.114 350.1.13.10 4.2.7.2.686 [id number] 044 [id number] [facility] 2022-03-15 00:00:00 2022-03-15 00:00:00 Telephone Sheila Ortiz Anthony [facility] 1.2.840.114 350.1.13.10 4.2.7.2.686 [id number] [facility] 2022-03-09 09:20:00 2022-03-09 10:34:16 Outpatient R SHEILA ORTIZ [facility] [id number] [facility] 2022-03-09 09:20:00 2022-03-09 10:34:16 Office Visit Sheila Ortiz [facility] 1.2.840.114 350.1.13.10 4.2.7.2.686 [id number] [facility] 2022-03-09 09:20:00 2022-03-09 09:20:00 Outpatient R SHEILA ORTIZ [facility] [id number] [facility] 2022-03-06 08:45:00 2022-03-06 09:00:00 Supervisor Accounting Clerks Visit 2, Adc Lab Sheila Ortiz [facility] 1.2.840.114 350.1.13.10 4.2.7.2.686 [id number] [facility] 2022-03-06 08:45:00 2022-03-06 08:45:00 Outpatient R SHEILA ORTIZ [facility] [id number] [facility] 2022-03-02 08:30:00 2022-03-02 08:30:00 Outpatient R [facility] [id number] [facility] 2022-03-02 08:30:00 2022-03-02 08:30:00 Outpatient R SHEILA ORTIZ [facility] [id number] [facility] 2022-02-14 00:00:00 2022-02-14 00:00:00 Refill Sheila Ortiz [facility] 1.2.840.114 350.1.13.10 4.2.7.2.686 [id number] [facility] 2022-01-12 00:00:00 2022-01-12 00:00:00 Telephone Sheila Ortiz [facility] PROFESSIO [facility] 1.2.840.114 350.1.13.10 4.2.7.2.686 [id number] [facility] 2022-01-02 00:00:00 2022-01-02 00:00:00 Patient Secure Msg Doctor Unassigned, Iyanbito [facility] 1.2.840.114 350.1.13.10 4.2.7.2.686 [id number] [facility] 2022-01-01 00:00:00 2022-01-01 00:00:00 Patient Secure Msg Doctor Unassigned, Iyanbito [facility] 1.2.840.114 350.1.13.10 4.2.7.2.686 [id number] [facility] 2021-12-27 02:35:00 2021-12-27 02:35:00 Outpatient Yan_W [facility] [id number] [facility] 2021-12-21 09:20:00 2021-12-21 09:20:00 Outpatient SHEILA ALMEIDA [facility] [id number] [facility] 2021-12-18 00:00:00 2021-12-18 00:00:00 Patient Secure Msg Doctor Unassigned, Iyanbito [facility] 1.2.840.114 350.1.13.10 4.2.7.2.686 [id number] [facility] 2021-12-11 15:40:00 2021-12-11 16:43:28 Outpatient SHEILA ALMEIDA [facility] [id number] [facility] 2021-12-11 15:40:00 2021-12-11 16:43:28 Office Visit Sheila Ortiz [facility] BUILDING 1.2.840.114 350.1.13.10 4.2.7.2.686 [id number] [facility] 2021-12-11 00:00:00 2021-12-11 00:00:00 Orders Only Doctor Unassigned, Iyanbito [facility] 1.2.840.114 350.1.13.10 4.2.7.2.686 [id number] [facility] 2021-10-02 08:40:00 2021-10-02 08:40:00 Outpatient R SHEILA ORTIZ [facility] [id number] [facility] 2021-09-13 00:00:00 2021-09-13 00:00:00 Sheila Oliveira [facility] 1.2840.114 350.1.13.10 4.2.7.2.686 [id number] [facility] 2021-09-05 00:00:00 2021-09-05 00:00:00 Orders Only Doctor Unassigned, Iyanbito [facility] 1.2.840.114 350.1.13.10 4.2.7.2.686 [id number] [facility] 2021-08-30 00:00:00 2021-08-30 00:00:00 RefAbby Gardner [facility] BUILDING 1.2.840.114 350.1.13.10 4.2.7.2.686 [id number] [facility] 2021-08-30 00:00:00 2021-08-30 00:00:00 Refill Sheila Ortiz [facility] BUILDING 1.2.840.114 350.1.13.10 4.2.7.2.686 [id number] [facility] 2021-08-02 00:00:00 2021-08-02 00:00:00 Refill Rebecca Carriontany [facility] PROF[facility] BUILDING 1.2.840.114 350.1.13.10 4.2.7.2.686 [id number] [facility] 2021-06-30 00:00:00 2021-06-30 00:00:00 Refill Sheila [facility]iz [facility] 1.2.840.114 350.1.13.10 4.2.7.2.686 [id number] 231 [id number] [facility] 2021-04-30 00:00:00 2021-04-30 00:00:00 Refill Sheila Ortiz Anthony [facility] 1.2.840.114 350.1.13.10 4.2.7.2.686 [id number] [facility] 2021-03-31 13:00:00 2021-03-31 13:00:00 Outpatient R DASIA MCGHEE [facility] [id number] [facility] 2021-02-23 13:00:00 2021-02-23 13:00:00 Outpatient R SHEILA ORTIZ [facility] [id number] [facility] 2021-02-06 16:30:00 2021-02-06 16:30:00 Outpatient R MARTHA CARRION [facility] [id number] [facility] 2021-02-01 09:00:00 2021-02-01 09:00:00 Outpatient CHIO EVANS [facility] [id number] [facility] 2020-12-30 08:40:00 2020-12-30 08:40:00 Outpatient R SHEILA ORTIZ [facility] [id number] [facility] 2020-12-25 11:27:00 2020-12-25 11:27:00 Outpatient Yan_W [facility] [id number] [facility] 2020-11-30 11:25:00 2020-11-30 11:25:00 Outpatient Yan_W [facility] [id number] [facility] 2020-11-29 11:24:00 2020-11-29 11:24:00 Outpatient Yan_W [facility] [id number] [facility] 2020-11-29 11:24:00 2020-11-29 11:24:00 Outpatient Yan_W [facility] [id number] [facility] 2020-11-29 00:00:00 2020-11-29 00:00:00 Colten Merlos MD: [address] [place] [address], [address], [place] [address] , Ph. [facility] - Otolaryngol ogy-MOB [id number] [facility] 2020-11-02 13:40:00 2020-11-02 13:40:00 Outpatient ABBY WRIGHT [facility] [id number] [facility] 2020-10-24 14:00:00 2020-10-24 14:00:00 Outpatient BRENDA MEDRANO [facility] [id number] [facility] 2020-09-29 10:00:00 2020-09-29 10:00:00 Outpatient R BRENDA PIERSON [facility] [id number] [facility] 2020-09-22 11:20:00 2020-09-22 11:20:00 Outpatient R [facility] [id number] [facility] 2020-09-08 09:20:00 2020-09-08 09:20:00 Outpatient SHEILA ALMEIDA [facility] [id number] [facility] 2020-08-25 15:45:00 2020-08-25 15:45:00 Outpatient LESTER MOLINAIG [facility] [id number] [facility] 2020-08-23 11:20:00 2020-08-23 11:20:00 Outpatient R [facility] [id number] [facility] 2020-08-16 15:00:00 2020-08-16 15:00:00 Outpatient R RALPHNNAMDIONEYDA ABBY [facility] [id number] [facility] 2020-07-26 08:00:00 2020-07-26 08:00:00 Outpatient SHEILA ALMEIDA [facility] [id number] [facility] 2020-07-19 09:00:00 2020-07-19 09:00:00 Outpatient SHEILA ALMEIDA [facility] [id number] [facility] 2020-07-06 09:15:00 2020-07-06 09:15:00 Outpatient GINETTE COUCH [facility] [id number] [facility] 2020-07-06 02:41:00 2020-07-06 02:41:00 Outpatient Yan_W [facility] [id number] [facility] 2020-07-06 02:41:00 2020-07-06 02:41:00 Outpatient Yan_W [facility] [id number] [facility] 2020-07-05 15:00:00 2020-07-05 15:00:00 Outpatient SHEILA ALMEIDA [facility] [id number] [facility] 2020-07-05 14:00:00 2020-07-05 14:00:00 Outpatient R [facility] [id number] [facility] 2020-06-28 10:15:00 2020-06-28 10:15:00 Outpatient GINETTE COUCH [facility] [id number] [facility] 2020-06-24 15:00:00 2020-06-24 15:00:00 Outpatient SHEILA ALMEIDA [facility] [id number] [facility] 2020-06-22 00:00:00 2020-06-22 00:00:00 Patient Secure Msg Sheila Ortiz [facility] 1.2.840.114 350.1.13.10 4.2.7.2.686 [id number] [facility] 2020-06-13 00:00:00 2020-06-13 00:00:00 Telephone Kimmy Ortizzanicolas Muhammad [facility] 1.2.840.114 350.1.13.10 4.2.7.2.686 [id number] 2020-06-13 00:00:00 2020-06-13 00:00:00 Telephone OrtizKimmySheila A [facility] 1.2.840.114 350.1.13.10 4.2.7.2.686 [id number] 2020-05-31 10:56:00 2020-05-31 10:56:00 Outpatient Porfirio [facility] [id number] [facility] 2020-05-31 00:00:00 2020-05-31 00:00:00 Colten Merlos MD: [address] [place] [address], [address], [place] [address] , Ph. [facility] - Otolaryngol ogy-MOB [id number] [facility] 2020-05-23 11:20:00 2020-05-23 11:40:00 Office Visit Sheila Ortiz Anthony [facility] 1.2.840.114 350.1.13.10 4.2.7.2.686 [id number] 2020-05-23 11:20:00 2020-05-23 11:20:00 Outpatient SHEILA ALMEIDA [facility] [id number] [facility] 2020-05-05 09:45:00 2020-05-05 09:45:00 Outpatient R SHEILA ORTIZ [facility] [id number] [facility] 2020-04-18 07:21:00 2020-04-18 07:21:00 Outpatient Yan_W [facility] [id number] [facility] 2020-04-18 00:00:00 2020-04-18 00:00:00 Colten Merlos MD: [address] [facility], [address], [place] [address] , Ph. G DC - [facility] - Otolaryngol ogy-MOB [id number] [facility] 2020-04-07 05:06:00 2020-04-07 05:06:00 Outpatient Yan_W [facility] [id number] [facility] 2020-04-07 05:06:00 2020-04-07 05:06:00 Outpatient Yan_W [facility] [id number] [facility] 2020-03-21 14:34:27 2020-03-21 23:59:00 Outpatient R RIPJIERIP KATECLARITAMARY [facility] [id number] [facility] 2020-03-21 15:30:00 2020-03-21 15:30:00 Outpatient R CHADDFIDEL BRENDA [facility] [id number] [facility] 2020-03-09 00:00:00 2020-03-09 00:00:00 Refill Sheila Ortiz [facility] 1.2.840.114 350.1.13.10 4.2.7.2.686 [id number] [facility] 2020-02-22 11:00:00 2020-02-22 11:00:00 Outpatient R BRENDA PIERSON [facility] [id number] [facility] 2020-02-17 00:00:00 2020-02-17 00:00:00 Telephone Sheila Ortiz [facility] 1.2.840.114 350.1.13.10 4.2.7.2.686 [id number] [facility] 2020-02-12 00:00:00 2020-02-12 00:00:00 Telephone Sheila Ortiz [facility] 1.2.840.114 350.1.13.10 4.2.7.2.686 [id number] [facility] 2020-02-08 12:36:26 2020-02-08 13:29:07 Office Visit Sheila Ortiz [facility] Building 1.2.840.114 350.1.13.10 4.2.7.2.686 [id number] [facility] 2020-02-08 12:20:00 2020-02-08 12:20:00 Outpatient R SHEILA ORTIZ [facility] [id number] [facility] 2020-02-08 00:00:00 2020-02-08 00:00:00 [facility] 1.2.840.114 350.1.13.10 4.2.7.2.686 [id number] [facility] 2020-02-02 15:01:00 2020-02-02 15:46:23 Laboratory Only Pc, Adc Echo Room [facility] 1.2.840.114 350.1.13.10 4.2.7.2.686 [id number] [id number] [facility] 2020-02-02 09:38:03 2020-02-02 10:05:13 [facility] 1.2.840.114 350.1.13.10 4.2.7.2.686 [id number] [facility] 2020-02-02 09:40:00 2020-02-02 09:40:00 Outpatient R VONNIECHIO [facility] [id number] [facility] 2020-02-02 00:00:00 2020-02-02 00:00:00 Orders Only Doctor Unassigned, Iyanbito [facility] 1.2.840.114 350.1.13.10 4.2.7.2.686 [id number] [facility] 2020-01-26 00:00:00 2020-01-26 00:00:00 Transition of Care Guadalupe Simmons 1.2.840.114 350.1.13.10 4.2.7.2.686 [id number] [facility] 2020-01-23 08:48:48 2020-01-24 11:05:00 Outpatient Rayo [facility] [id number] [facility] 2020-01-23 08:48:48 2020-01-24 11:05:00 Emergency Christiano Aguilar [facility] 1.2.840.114 350.1.13.10 4.2.7.2.686 [id number] [facility] 2020-01-23 00:00:00 2020-01-23 00:00:00 Nurse Triage Aftabcindy [facility] 1.2.840.114 350.1.13.10 4.2.7.2.686 [id number] [facility] 2020-01-19 00:00:00 2020-01-19 00:00:00 Patient Secure Msg Doctor Unassigned, Iyanbito [facility] 1.2.840.114 350.1.13.10 4.2.7.2.686 [id number] [facility] 2020-01-18 10:00:00 2020-01-18 10:00:00 Outpatient BRENDA MEDRANO [facility] [id number] [facility] 2020-01-12 00:00:00 2020-01-12 00:00:00 Patient Secure Msg Sheila Ortiz [facility] Office Building One 1.2.840.114 350.1.13.10 4.2.7.2.686 [id number] [facility] 2020-01-11 12:54:52 2020-01-11 14:58:00 Emergency Talya Stout [facility] 1.2.840.114 350.1.13.10 4.2.7.2.686 [id number] [id number] [facility] 2020-01-11 00:00:00 2020-01-11 00:00:00 Nurse Triage Yana Vázquez [facility] 1.2.840.114 350.1.13.10 4.2.7.2.686 [id number] [facility] 2020-01-11 00:00:00 2020-01-11 00:00:00 Telephone Sheila Ortiz [facility] Building 1.2.840.114 350.1.13.10 4.2.7.2.686 [id number] [facility] 2020-01-07 08:10:11 2020-01-07 11:50:16 Telemedici ne Visit Sheila Ortiz [facility] Building 1.2.840.114 350.1.13.10 4.2.7.2.686 [id number] [facility] 2020-01-07 08:40:00 2020-01-07 08:40:00 Outpatient R SHEILA ORTIZ [facility] [id number] [facility] 2019-12-29 07:04:42 2019-12-29 13:19:01 Telemedici ne Visit Sheila Ortiz [facility] Building 1.2.84.114 350.1.13.10 4.2.7.2.686 [id number] [facility] 2019-12-29 08:00:00 2019-12-29 08:00:00 Outpatient R SHEILA ORTIZ [facility] [id number] [facility] 2019-12-23 00:00:00 2019-12-23 00:00:00 Patient Secure Msg Sheila Ortiz [facility] Office Building One 1.84.114 350.1.13.10 4.2.7.2.686 [id number] [facility] 2019-11-23 13:28:55 2019-11-23 16:41:00 Emergency X CHRISTIANO AGUILAR [facility] [id number] [facility] 2019-11-23 13:28:55 2019-11-23 16:41:00 Emergency Christiano Aguilar [facility] 1.84.114 350.1.13.10 4.2.7.2.686 [id number] [facility] 2019-11-23 00:00:00 2019-11-23 00:00:00 Telephone Sheila Ortiz [facility] 1.84.114 350.1.13.10 4.2.7.2.686 [id number] [facility] 2019-11-23 00:00:00 2019-11-23 00:00:00 Telephone Sheila Ortiz [facility] Building 1.284.114 350.1.13.10 4.2.7.2.686 [id number] [facility] 2019-11-23 00:00:00 2019-11-23 00:00:00 Telephone Sheila Ortiz [facility] Building 1.2.840.114 350.1.13.10 4.2.7.2.686 [id number] [facility] 2019-11-05 09:04:26 2019-11-05 10:28:32 Telemedici ne Visit Sheila Ortiz [facility] 1.2.840.114 350.1.13.10 4.2.7.2.686 [id number] [facility] 2019-11-05 08:00:00 2019-11-05 08:00:00 Outpatient R SHEILA ORTIZ [facility] [id number] [facility] 2019-10-28 00:00:00 2019-10-28 00:00:00 Refill Sheila Ortiz [facility] 1.2840.114 350.1.13.10 4.2.7.2.686 [id number] 044 [id number] [facility] 2019-10-22 00:00:00 2019-10-22 00:00:00 Patient Secure Msg Doctor Unassigned, Iyanbito [facility] 1.2.840.114 350.1.13.10 4.2.7.2.686 [id number] [facility] 2019-10-19 00:00:00 2019-10-19 00:00:00 Orders Only Doctor Unassigned, Iyanbito [facility] 1.2840.114 350.1.13.10 4.2.7.2.686 [id number] [facility] 2019-09-29 03:02:49 2019-09-29 04:47:00 Emergency Ginny [facility] 1.2840.114 350.1.13.10 4.2.7.2.686 [id number] [facility] 2019-09-28 00:00:00 2019-09-28 00:00:00 Letter (Out) Doctor Unassigned, Iyanbito [facility] 1.2.840.114 350.1.13.10 4.2.7.2.686 [id number] 044 [id number] [facility] 2019-09-28 00:00:00 2019-09-28 00:00:00 Patient Secure Msg Sheila Ortiz [facility] Building 1.2.840.114 350.1.13.10 4.2.7.2.686 [id number] [facility] 2019-09-21 00:00:00 2019-09-21 00:00:00 Refill Sheila Ortiz [facility] Building 1.2.840.114 350.1.13.10 4.2.7.2.686 [id number] [facility] 2019-04-24 00:00:00 2019-04-24 00:00:00 Patient Outreach Elisa Vazquez [facility] Office Building One 1.2.840.114 350.1.13.10 4.2.7.2.686 [id number] [facility] 2019-04-21 15:31:32 2019-04-21 16:55:23 Office Visit Abby Fernandez [facility] Building 1.2.840.114 350.1.13.10 4.2.7.2.686 [id number] 044 [id number] [facility] 2019-03-17 07:31:28 2019-03-17 08:49:24 Office Visit Sheila Ortiz [facility] Building 1.2.840.114 350.1.13.10 4.2.7.2.686 [id number] [facility] 2019-03-17 00:00:00 2019-03-17 00:00:00 Orders Only Doctor Unassigned, Iyanbito [facility] 1.2.840.114 350.1.13.10 4.2.7.2.686 [id number] [facility] 2019-01-06 06:21:00 2019-01-06 06:21:00 Outpatient MHBL MHBL 7500 MHBL Results Test Description Test Time Test Comments Results Result Co mments Source [facility], VURBA9000-11-07 22:46:39* Test Item Value Reference Range Interpretation Comme nts VIT B12 (test code = 7923159548) 176 pg/mL 240-930 L MARQUEZ (test code = MARQUEZ) Biotin has been reported to cause a positive bias, interpret results relative to patient's use of biotin. Lab Interpretation (test code = 18777-2) Abnormal [facility] Center[facility] HEMOGLOBIN (A1C)2023-04-04 22:15:21* Test Item Value Reference Range Interpretation Comme nts HGB A1C (test code = 4548-4) 7.5 % 4.0-5.7 H MARQUEZ (test code = MARQUEZ) Reference RangesNormal: <5.7%Prediabetes: 5.7 - 6.4%Diabetes: > 6.5% Lab Interpretation (test code = 22421-5) Abnormal [facility] (A1C)2023-04-04 22:15:21* Test Item Value Reference Range Interpretation Comme nts HGB A1C (test code = 4548-4) 7.5 % 4.0-5.7 H MARQUEZ (test code = MARQUEZ) Reference RangesNormal: <5.7%Prediabetes: 5.7 - 6.4%Diabetes: > 6.5% Lab Interpretation (test code = 25409-5) Abnormal [facility] D, [id number] 21:04:02* Test Item Value Reference Range Interpretation Comme nts VIT D 25OH (test code = 16472-8) 38 ng/mL 25-80 MARQUEZ (test code = MARQUEZ) Deficiency: <20 ng/mLInsufficiency : 20-24 ng/mLOptimal: 25-80 ng/mL Lab Interpretation (test code = 54966-6) Normal [facility], [id number] 21:04:02* Test Item Value Reference Range Interpretation Comme nts VIT D 25OH (test code = 51501-5) 38 ng/mL 25-80 MARQUEZ (test code = MARQUEZ) Deficiency: <20 ng/mLInsufficiency : 20-24 ng/mLOptimal: 25-80 ng/mL Lab Interpretation (test code = 43272-8) Normal [facility] CenterLIPID PANEL (98090)(TOTAL CHOLESTEROL, TRIGLYCERIDES, HDL)2023-04-04 19:59:43* Test Item Value Reference Range Interpretation Comme nts CHOL (test code = 2388270239) 157 mg/dL 120-200 HDL (test code = 1250281689) 47 mg/dL >=40 HDLC RATIO (test code = 5765552298) 3.3 <=5.0 TRIG (test code = 7016546539) 103 mg/dL 30-170 LDL CHOL (test code = 89100-5) 89 mg/dL <=160 VLDL (test code = 6184485381) 21 mg/dL 5-60 Lab Interpretation (test cod e = 45843-3) Normal [facility] Center[facility] (01787)(TOTAL CHOLESTEROL, TRIGLYCERIDES, HDL)2023-04-04 19:59:43* Test Item Value Reference Range Interpretation Comme nts CHOL (test code = 6148569809) 157 mg/dL 120-200 HDL (test code = 8434698870) 47 mg/dL >=40 HDLC RATIO (test code = 4498922383) 3.3 <=5.0 TRIG (test code = 7934630147) 103 mg/dL 30-170 LDL CHOL (test code = 11913-3) 89 mg/dL <=160 VLDL (test code = 7504050406) 21 mg/dL 5-60 Lab Interpretation (test cod e = 23302-5) Normal [facility] CenterCOMP. METABOLIC PANEL (92369)2023-04-04 19:59:22* Test Item Value Reference Range Interpretation Comme nts NA (test code = 4285047022) 143 mmol/L 135-145 K (test code = 4824729568) 5.0 mmol/L 3.5-5.0 CL (test code = 6128965691) 102 mmol/L 98-108 CO2 TOTAL (test code = 5459155000) 31 mmol/L 23-31 AGAP (test code = 1622940849) 10 2-16 BUN (test code = 3265964787) 15 mg/dL 7-23 GLUCOSE (test code = 6238155947) 139 mg/dL 70-110 H CREATININE (test code = 7658375744) 0.98 mg/dL 0.60-1.25 TOTAL BILI (test code = 9461624877) 0.5 mg/dL 0.1-1.1 CALCIUM (test code = 7510787386) 9.8 mg/dL 8.6-10.6 T PROTEIN (test code = 9878376486) 8.2 g/dL 6.3-8.2 ALBUMIN (test code = 7551693726) 4.6 g/dL 3.5-5.0 ALK PHOS (test code = 1619213076) 99 U/L 34-122 ALTv (test code = 1742-6) 22 U/L 5-50 AST(SGOT) (test code = 0127724918) 32 U/L 13-40 eGFR (test code = 9892911188) 75.0 mL/min/1.73m2 MARQUEZ (test code = MARQUEZ) Association of Glomerular Filtration Rate (GFR) and Staging of Kidney Disease* + --+ --+ ------+| GFR (mL/min/1.73 m2) ?| With Kidney Damage ?| ?Without Kidney Damage+ --------+ --------+ +| ?>90 ?| ?Stage one ?| ? Normal ?+ ---+ ---+ -------+| ?60-89 ?| ?Stage two ?| ? Decreased GFR ? + --+ --+ ------+| ?30-59 ?| ?Stage three ?| ? Stage three ? + --+ --+ ------+| ?15-29 ?| ?Stage four ? | ? Stage four ?+ ---+ ---+ -------+| ?<15 (or dialysis) ? ?| ?Stage five ? | ? Stage five ?+ ---+ ---+ -------+ *Each stage assumes the associated GFR level has been in effect for at least three months. ?Stages 1 to 5, with or without kidney disease, indicate chronic kidney disease. Notes: Determination of stages one and two (with eGFR >59mL/min/1.73 m2) requires estimation of kidney damage for at least three months as defined by structural or functional abnormalities of the kidney, manifested by either:Pathological abnormalities or Markers of kidney damage (including abnormalities in the composition of the blood or urine or abnormalities in imaging tests). Lab Interpretation (test code = 55748-1) Abnormal [facility]. METABOLIC PANEL (55510)2023-04-04 19:59:22* Test Item Value Reference Range Interpretation Comme nts NA (test code = 2510304062) 143 mmol/L 135-145 K (test code = 2249578350) 5.0 mmol/L 3.5-5.0 CL (test code = 1487466039) 102 mmol/L 98-108 CO2 TOTAL (test code = 6094589803) 31 mmol/L 23-31 AGAP (test code = 1365358171) 10 2-16 BUN (test code = 8434746686) 15 mg/dL 7-23 GLUCOSE (test code = 9323182350) 139 mg/dL 70-110 H CREATININE (test code = 7308183850) 0.98 mg/dL 0.60-1.25 TOTAL BILI (test code = 9151757911) 0.5 mg/dL 0.1-1.1 CALCIUM (test code = 9893316792) 9.8 mg/dL 8.6-10.6 T PROTEIN (test code = 5504806863) 8.2 g/dL 6.3-8.2 ALBUMIN (test code = 4187253108) 4.6 g/dL 3.5-5.0 ALK PHOS (test code = 2145853141) 99 U/L 34-122 ALTv (test code = 1742-6) 22 U/L 5-50 AST(SGOT) (test code = 0562902852) 32 U/L 13-40 eGFR (test code = 5375007773) 75.0 mL/min/1.73m2 MARQUEZ (test code = MARQUEZ) Association of Glomerular Filtration Rate (GFR) and Staging of Kidney Disease* + --+ --+ ------+| GFR (mL/min/1.73 m2) ?| With Kidney Damage ?| ?Without Kidney Damage+ --------+ --------+ +| ?>90 ?| ?Stage one ?| ? Normal ?+ ---+ ---+ -------+| ?60-89 ?| ?Stage two ?| ? Decreased GFR ? + --+ --+ ------+| ?30-59 ?| ?Stage three ?| ? Stage three ? + --+ --+ ------+| ?15-29 ?| ?Stage four ? | ? Stage four ?+ ---+ ---+ -------+| ?<15 (or dialysis) ? ?| ?Stage five ? | ? Stage five ?+ ---+ ---+ -------+ *Each stage assumes the associated GFR level has been in effect for at least three months. ?Stages 1 to 5, with or without kidney disease, indicate chronic kidney disease. Notes: Determination of stages one and two (with eGFR >59mL/min/1.73 m2) requires estimation of kidney damage for at least three months as defined by structural or functional abnormalities of the kidney, manifested by either:Pathological abnormalities or Markers of kidney damage (including abnormalities in the composition of the blood or urine or abnormalities in imaging tests). Lab Interpretation (test code = 86836-3) Abnormal [facility] WITHOUT [id number] 19:01:13* Test Item Value Reference Range Interpretation Comme nts WBC (test code = 6690-2) 7.36 See_Comment [Automated message] The system which generated this result transmitted reference range: 4.20 - 10.70 10*3/?L. The reference range was not used to interpret this result as normal/abnormal. RBC (test code = 789-8) 4.23 See_Comment L [Automated message] The system which generated this result transmitted reference range: 4.26 - 5.52 10*6/?L. The reference range was not used to interpret this result as normal/abnormal. HGB (test code = 718-7) 13.6 g/dL 12.2-16.4 HCT (test code = 4544-3) 42.3 % 38.4-49.3 MCH (test code = 785-6) 32.2 pg 26.1-32.7 MCV (test code = 787-2) 100.0 fL 81.7-95.6 H MCHC (test code = 786-4) 32.2 g/dL 31.2-35.0 PLT (test code = 777-3) 294 See_Comment [Automated message] The system which generated this result transmitted reference range: 150 - 328 10*3/?L. The reference range was not used to interpret this result as normal/abnormal. MPV (test code = 56990-6) 10.8 fL 9.8-13.0 RDW-CV (test code = 788-0) 13.1 % 12.1-15.4 RDW-SD (test code = 65372-0) 48.5 fL 38.5-51.6 NRBC x10^3 (test code = 9228757268) See_Comment [Automated [employer] [facility]] The system which generated this result transmitted reference range: 10*3/?L. The reference range was not used to interpret this result as normal/abnormal. NRBC/100 WBC (test code = 1384086965) 0.0 See_Comment [Automated [employer]] The system which generated this result transmitted reference range: 0.0 - 10.0 /100 WBCs. The reference range was not used to interpret this result as normal/abnormal. IPF % (test code = 4234604885) Lab Interpretation (test code = 48104-9) Abnormal [facility] WITHOUT [id number] 19:01:13* Test Item Value Reference Range Interpretation Comme nts WBC (test code = 6690-2) 7.36 See_Comment [Automated message] The system which generated this result transmitted reference range: 4.20 - 10.70 10*3/?L. The reference range was not used to interpret this result as normal/abnormal. RBC (test code = 789-8) 4.23 See_Comment L [Automated message] The system which generated this result transmitted reference range: 4.26 - 5.52 10*6/?L. The reference range was not used to interpret this result as normal/abnormal. HGB (test code = 718-7) 13.6 g/dL 12.2-16.4 HCT (test code = 4544-3) 42.3 % 38.4-49.3 MCH (test code = 785-6) 32.2 pg 26.1-32.7 MCV (test code = 787-2) 100.0 fL 81.7-95.6 H MCHC (test code = 786-4) 32.2 g/dL 31.2-35.0 PLT (test code = 777-3) 294 See_Comment [Automated message] The system which generated this result transmitted reference range: 150 - 328 10*3/?L. The reference range was not used to interpret this result as normal/abnormal. MPV (test code = 03446-6) 10.8 fL 9.8-13.0 RDW-CV (test code = 788-0) 13.1 % 12.1-15.4 RDW-SD (test code = 73459-7) 48.5 fL 38.5-51.6 NRBC x10^3 (test code = 8977304015) See_Comment [Automated [employer] [facility]] The system which generated this result transmitted reference range: 10*3/?L. The reference range was not used to interpret this result as normal/abnormal. NRBC/100 WBC (test code = 6413881032) 0.0 See_Comment [Automated [employer] [facility]] The system which generated this result transmitted reference range: 0.0 - 10.0 /100 WBCs. The reference range was not used to interpret this result as normal/abnormal. IPF % (test code = 6346775129) Lab Interpretation (test code = 77036-6) Abnormal [facility] Notes Date/Time Note Provider Source 2024-07-22 15:29:18 Images from the original note were not included. Notes: Last Refilled: metFORMIN 500 mg tablet Sig: Take 1 tablet by mouth in the morning and 1 tablet in the evening. Take with meals. Disp: 180 tablet Refills: 3 Start: 07/21/2024 Class: eRX Non-formulary For: Type 2 diabetes mellitus without complication, without long-term current use of insulin Last ordered: 1 year ago (05/30/2023) by Angel Burgess MD Endocrinology: Diabetes - Biguanides Endzom7807/21/2024 10:26 AM Protocol Details Valid encounter within last 12 months Cr is between 0 and 1.3 and within 360 days HBA1C within 180 days To be filled at: [facility] [id number] [place], [place] - [address] [facility] [address] Recent Visits Date Type Provider Dept 04/04/23 Office Visit Julissa Giles MD [facility] Showing recent visits within past 540 days with a meds authorizing provider and meeting all other requirements Future Appointments Date Type Provider Dept 10/12/24 Appointment Julissa Giles MD [facility] Showing future appointments within next 150 days with a meds authorizing provider and meeting all other requirements [facility] Coty Au MA [facility] 2024-04-06 10:30:00 Images from the original note were not included. Venipuncture collection performed by clean technique on the left anticubitus. Total of 1 attempts were made. Slight pressure and a bandage/dressing were applied to the site(s). The patient experienced no complications. The following specimens were processed according to instructions and sent to [facility] laboratories per lab order on 04/06/2024: LT BLUE SST 3 RED LAV 2 PPT DK GREEN (LiHep) DK GREEN (SodH) OLIVERA DK BLUE (K2) DK BLUE (S) ACD Blood Culture NIPT/NTD Patient has been identified by and name and was provided with cup, antiseptic towelette, and clean catch instructions. 1 urine specimen(s) sent. Unpreserved 1 Urine Culture Aptima tube Other urine [facility] 2024-04-02 08:53:02 pt will arrive 15min to visit to do HRA. A Dennis MA [facility] 2023-04-04 09:45:00 Formatting of this n ote is different from the original. Images from the original note were not included. Venipuncture collection performed by clean technique on the right anticubitus. Total of 1 attempts were made. Slight pressure and a bandage/dressing were applied to the site(s). The patient experienced no complications. The following specimens were processed according to instructions and sent to [facility] laboratories per lab order on 04/04/2023: LT BLUE SST 3 RED LAV 2 PPT DK GREEN (LiHep) DK GREEN (SodH) OLIVERA DK BLUE (K2) DK BLUE (S) ACD Blood Culture NIPT/NTD Patient has been identified by and name and was provided with cup, antiseptic towelette, and clean catch instructions. 2 urine specimen(s) sent. Unpreserved 2 Urine Culture Aptima tube Other urine Esthela Arnold [facility] 2023-04-04 09:45:00 Addended by: Nic GILES on: 04/09/2023 09:48 PM Modules accepted: Orders [facility] 2023-03-08 16:47:09 Formatting of this n ote is different from the original. Medication Lancets Misc (Order [id number]) Order Information Date and Time Ordering Department Ordering/Authorizing 03/08/2023 4:46 PM [facility] Julissa Giles MD Outpatient Medication Detail Disp Refills Start End ELENA Lancets Misc 100 Each 3 03/08/2023 -- Sig: Use BID, DX E11.9 (Brand upon insurance approval) Sent to pharmacy as: lancets (SINGLE-LET) Class: eRX Order: [id number] Date/Time Signed: 03/08/2023 16:46 E-Prescribing Status: Receipt confirmed by pharmacy (03/08/2023 4:46 PM CDT) Medication Administration Instructions Use BID, DX E11.9 (Brand upon insurance approval) Order Associated Providers Name NPI Ordering Provider Julissa Giles MD [[id number]] [id number] Authorizing Provider Julissa Giles MD [[id number]] [id number] Order Mode Info Action Created on Order Mode Entered by Responsible Provider Signed by Signed on Ordering 03/08/23 1646 Ambulatory Guidelines Aleida Sands, CLINICAL COUNSELOR Julissa Giles MD Pharmacy [facility] [id number] [place], [place] - [address] [facility] [address] Aleida Sands LVN [facility] 2023-03-08 12:48:25 Formatting of this n ote might be different from the original. Patient daughter called saying no diabetic testing needles were sent to the pharmacy. Please send. Mariela Shepherd [facility] 2019-09-28 15:57:32 09/28/19 3:57 PM Refill for fluticasone is approved-patient is compliant with guidelines. Katja Ruffin MA 09/28/2019 3:58 PM [facility] Katja Ruffin MA [facility]"
[2024-12-22] MEDS ORDERED: HYDROCODONE/CHLORPHEN 5 ML/OSYR ONE (14:03)
[2024-12-22 14:31] LABS: SARS-CoV-2 Antigen Rapid Res Negative (Negative)
--- NOTE | 2024-12-22 14:57 | RAD REPORT ---
EXAMINATION: TWO VIEW CHEST XR CLINICAL INDICATION: Male, 74 years old. COUGH TECHNIQUE: 2 view radiographs of the chest were performed. COMPARISON: 11/22/2018. FINDINGS: The lungs are well inflated and clear. No pneumothorax or sizable effusion. The heart is normal in si ze. Mediastinal contours are unremarkable. IMPRESSION: No acute or significant abnormalities.
--- NOTE | 2024-12-22 15:04 | ER ---
Nurse's Notes [facility] Name: Selena Melgar Age: 74 yrs Sex: Male : 1950 Arrival Date: 12/22/2024 Time: 13:35 Bed 6 Private MD: Diagnosis: Cough Presentation: 12/22 13:45 Chief complaint: Patient states: Cough with back pain for 2-3 days. Coronavirus screen: ll1 Client denies travel out of the [place] in the last 14 days. At this time, the client does not indicate any symptoms associated with coronavirus-19. Ebola Screen: Patient denies travel to an Ebola-affected area in the 21 days before illness onset. Initial Sepsis Screen: Does the patient meet any 2 criteria? No. Patient's initial sepsis screen is negative. Does the patient have a suspected source of infection? No. Patient's initial sepsis screen is negative. Risk Assessment: Do you want to hurt yourself or someone else? Patient reports no desire to harm self or others. Onset of symptoms was December 20, 2024. 13:45 Method Of Arrival: Ambulatory [facility] 13:45 Acuity: BALA 3 ll1 Historical: - Allergies: 13:41 No Known Allergies; ll1 - PMHx: 13:41 CVA; Diabetes - NIDDM; Hyperlipidemia; Hypertension; ll1 - Immunization history:: Adult Immunizations up to date. - Infectious Disease History:: Denies. - Social history:: Smoking status: Patient denies any tobacco usage or history of. - Family history:: not pertinent. - Hospitalizations: : No recent hospitalization is reported. Screenin:50 [facility] ED Fall Risk Assessment (Adult) History of falling in the last 3 months, me1 including since admission No falls in past 3 months (0 pts) Confusion or Disorientation No (0 pts) Intoxicated or Sedated No (0 pts) Impaired Gait No (0 pts) Mobility Assist Device Used No (0 pt) Altered Elimination No (0 pt) Score/Fall Risk Level 0 - 2 = Low Risk Maintained a safe environment, Provided non-skid footwear, Hourly rounding (assess needs \T\ fall precautionary measures) done. Abuse screen: Denies threats or abuse. Nutritional screening: No deficits noted. Tuberculosis screening: No symptoms or risk factors identified. Assessment: 13:50 General: Appears ill, well groomed, well developed, well nourished, Behavior is calm, me1 cooperative, appropriate for age, Reports cough with back pain x 2-3 days. Pain: Complains of pain in back Pain does not radiate. Pain currently is 2 out of 10 on a pain scale. at worst was 8 out of 10 on a pain scale. Quality of pain is described as sharp, Pain began gradually, Is episodic, Aggravated by cough. Neuro: Level of Consciousness is awake, alert, obeys commands, Oriented to person, place, time, situation, Appropriate for age. Cardiovascular: Patient's skin is warm and dry. Respiratory: Reports cough that is persistent Airway is patent Respiratory effort is even, unlabored, Respiratory pattern is regular, symmetrical. GI: No signs and/or symptoms were reported involving the gastrointestinal system. : No signs and/or symptoms were reported regarding the genitourinary system. EENT: Reports nasal congestion. Derm: Skin is intact, is healthy with good turgor, Skin is pink, warm \T\ dry. Musculoskeletal: No signs and/or symptoms reported regarding the musculoskeletal system. Vital Signs: 13:45 Weight 68.04 kg; Height 5 ft. 5 in. ; Pain 0/10; ll1 13:47 BP 162 / 81; Pulse 77; Resp 20; Temp 97.8(O); Pulse Ox 99% on R/A; tm3 14:00 BP 163 / 85; Pulse 78; Resp 20; Pulse Ox 98% ; me1 15:00 BP 152 / 79; Pulse 62; Resp 17; Temp 98.2; Pulse Ox 96% ; me1 13:45 Body Mass Index 24.96 (68.04 kg, 165.1 cm) ll1 13:45 Pain Scale: Adult ll1 ED Course: 13:39 Patient arrived in ED. im 13:41 Arm band placed on Patient placed in an exam room, on a stretcher. ll1 13:45 Michael Groves MD is Attending Physician. rn 13:45 Cheryl Garcia FNP-C is [facility] kb 13:45 Triage completed. ll1 13:50 Patient has correct armband on for positive identification. Bed in low position. Call me1 light in reach. Side rails up X2. Provided Education on: POC. Verbalized understanding.. Client placed on continuous cardiac and pulse oximetry monitoring. NIBP monitoring applied. Pulse ox on. NIBP on. 13:50 No provider procedures requiring assistance completed. Patient did not have IV access me1 during this emergency room visit. 13:53 Yolie Laboy, RN is Primary Nurse. me1 14:04 XRAY Chest Pa And Lat (2 Views) In Process Unspecified. EDMS 14:10 SARS RAPID Sent. me1 Administered Medications: 14:10 Drug: Tussionex Pennkinetic ER PO Suspension 5 ml PO once Route: PO; me1 15:28 Follow up: Response: No adverse reaction; Marked relief of symptoms me1 15:33 Drug: LevOfloxacin PO 500 mg PO once Route: PO; me1 15:33 Follow up: Response: No adverse reaction me1 Medication: 13:50 VIS not applicable for this client. me1 Outcome: 15:03 Discharge ordered by . rn 15:37 Patient left the ED. me1 Signatures: Dispatcher [employer] EDNY Cheryl Garcia, PRESS BRAKE OPERATOR-C PRESS BRAKE OPERATOR-CkKai Hollis tm3 Michael Groves MD MD rn Lewis, Lynsay, RN RN 1 Josefina Alvarez Michelle, RN RN me1
--- NOTE | 2024-12-22 15:04 | EDPHYS ---
Physician Documentation [facility] Name: Selena Melgar Age: 74 yrs Sex: Male : 1950 Arrival Date: 12/22/2024 Time: 13:35 Bed 6 Private MD: ED Physician Michael Groves HPI: 12/22 15:01 This 74 yrs old Male presents to ER via Ambulatory with complaints of Cough, rn Flu Symptoms. 15:01 The patient or guardian reports cough. rn 15:01 Onset: The symptoms/episode began/occurred 3 day(s) ago. Severity of symptoms: At their rn worst the symptoms were mild, in the emergency department the symptoms are unchanged. Associated signs and symptoms: Pertinent positives: rhinorrhea, Pertinent negatives: vomiting. The patient has experienced similar episodes in the past. Patient reports 2 or 3 days of cough with left posterior thoracic pain with coughing. No shortness of breath. No hemoptysis. No fever or chills. Reports runny nose and congestion.. Historical: - Allergies: 13:41 No Known Allergies; ll1 - PMHx: 13:41 CVA; Diabetes - NIDDM; Hyperlipidemia; Hypertension; ll1 - Immunization history:: Adult Immunizations up to date. - Infectious Disease History:: Denies. - Social history:: Smoking status: Patient denies any tobacco usage or history of. - Family history:: not pertinent. - Hospitalizations: : No recent hospitalization is reported. ROS: 15:01 Constitutional: Negative for fever, chills, and weight loss, Cardiovascular: Negative rn for chest pain, palpitations, and edema, Respiratory: Positive for cough Abdomen/GI: Negative for abdominal pain, nausea, vomiting, diarrhea, and constipation, Back: Negative for injury and pain, MS/Extremity: Negative for injury and deformity, Skin: Negative for injury, rash, and discoloration, Neuro: Negative for headache, weakness, numbness, tingling, and seizure, Exam: 15:01 Constitutional: This is a well developed, well nourished patient who is awake, alert, rn and in no acute distress. Cardiovascular: Regular rate and rhythm. No pulse deficits. Respiratory: No increased work of breathing, no retractions or nasal flaring. Skin: No cyanosis Vital Signs: 13:45 Weight 68.04 kg; Height 5 ft. 5 in. ; Pain 0/10; ll1 13:47 BP 162 / 81; Pulse 77; Resp 20; Temp 97.8(O); Pulse Ox 99% on R/A; tm3 14:00 BP 163 / 85; Pulse 78; Resp 20; Pulse Ox 98% ; me1 15:00 BP 152 / 79; Pulse 62; Resp 17; Temp 98.2; Pulse Ox 96% ; me1 13:45 Body Mass Index 24.96 (68.04 kg, 165.1 cm) ll1 13:45 Pain Scale: Adult ll1 MDM: 13:45 Medical Screening Exam initiated rn 15:01 Differential Diagnosis: Bronchitis Upper Respiratory Infection Sinusitis Pharyngitis rn Viral Syndrome Pneumonia. Data reviewed: vital signs, nurses notes, lab test result(s), radiologic studies, plain films, and as a result, I will discharge patient. Counseling: I had a detailed discussion with the patient and/or guardian regarding the historical points, exam findings, and any diagnostic results supporting the discharge/admit diagnosis, lab results, radiology results, the need for outpatient follow up, to return to the emergency department if symptoms worsen or persist or if there are any questions or concerns that arise at home. Special discussion: I discussed with the patient/guardian in detail that at this point there is no indication for admission to the hospital. It is understood, however, that if the symptoms persist or worsen the patient needs to return immediately for re-evaluation. ED course: Chest x-ray images negative for pneumonia per my interpretation. No oxygen requirement. I have personally reviewed all of the results, including but not limited to blood tests and imaging deemed necessary to safely discharge this patient at this time. All results given to and printed out for patient. I personally went over all the results with the patient and answered all questions. Patient will follow-up with PCP and or specialist as discussed. Return precautions given and understood.. 12/22 13:49 Order name: SARS RAPID; Complete Time: 14:50 rn 12/22 13:46 Order name: XRAY Chest Pa And Lat (2 Views); Complete Time: 14:58 rn Administered Medications: 14:10 Drug: Tussionex Pennkinetic ER PO Suspension 5 ml PO once Route: PO; me1 15:28 Follow up: Response: No adverse reaction; Marked relief of symptoms me1 15:33 Drug: LevOfloxacin PO 500 mg PO once Route: PO; me1 15:33 Follow up: Response: No adverse reaction me1 Disposition Summary: 12/22/24 15:03 Discharge Ordered Notes: Location: Home rn Problem: new rn Symptoms: have improved rn Condition: Stable rn Diagnosis - Cough rn Followup: rn - With: Private Physician - When: As needed - Reason: Recheck today's complaints, Re-evaluation by your physician Discharge Instructions: - Discharge Summary Sheet rn - Cough, Adult rn Forms: - Medication Reconciliation Form rn - Antibiotic rn integrated - Prescription Opioid Use rn - Patient Portal Instructions rn - Leadership Thank You Letter rn Prescriptions: - Guaifenesin AC 10-100 mg/5 mL Oral Liquid - take 10 milliliters ORAL route every 4 hours As needed; 240 milliliter; rn Refills: 0, Product Selection Permitted - levofloxacin 500 mg Oral tablet - take 1 tablet ORAL route once daily for 7 days; 7 tablet; Refills: 0, Product rn Selection Permitted Signatures: Dispatcher [employer] EDMichael Watson MD MD rn Lewis, Lynsay, RN RN 1 Yolie Laboy RN RN mn1
[2024-12-22] MEDS ORDERED: levoFLOXacin 250 MG TAB ONE (15:30)
[2024-12-22 19:37] VITALS: BP 152/79; TEMP 98.2; O2SAT 96
== END 2024-12-22 15:37 | disposition home or self-care (01) ==
LOC: ER 13:35
DX: R05.9 Cough, unspecified (principal); Z11.52 Encounter for screening for COVID-19
CPT/HCPCS: 36415; 71046; 87426; 99283